=== PATIENT | male | born 1940 | race Caucasian/White ===

== ENCOUNTER 2018-04-19 14:00 | Inpatient (IN) ==
[2018-04-19] MEDS ORDERED: Sod Chloride 0.9% Inj 1,000 ML IV.SIG ONE (14:37)
--- NOTE | 2018-04-19 14:48 | ED ---
HPI General Chief Complaint: Overdose Stated Complaint: overdose Time Seen by Provider: 04/19/18 14:28 Source: patient and EMS Mode of arrival: EMS Limitations: no limitations History of Present Illness HPI Narrative: Patient is a 77-year-old male presenting to the emergency department via EMS and accompanied by law enforcement for evaluation after an attempted overdose. Patient is currently under Butt act. Patient states that he does not feel like himself. He reported that he has had financial issues due to a civil lawsuit. His moved out of their home in June, he states that they have a good relationship now and see each other frequently, he did see her last night. Patient took an unknown amount of crushed hydrocodone 5 /325mg tablets at approximately 1030 this morning. Patient crushes them for ease of administration. He also reported that he drinks 3 vodka drinks on a daily basis. He stopped taking his blood pressure medications in June around the same time his moved out. He denies any psychiatric history, or previous suicide attempt. Patient called 911 himself. He presented nauseated and vomiting. He also states he had chest pain this morning, it was midsternal with no radiation. He denied any diaphoresis or shortness of breath with that episode. He is currently pain-free. MD complaint: Reports intentional overdose Onset (ago): hour(s) Time: 10:30 Intent: suicide attempt How Overdose Was Discovered: called 911 Context: Intentional Overdose: relationship problems, financial issues, legal problems and drug/ETOH problems Associated symptoms: depression Related Data Home Medications Medication Instructions Recorded Confirmed No Known Home Medications 04/19/18 04/19/18 Allergies Allergy/AdvReac Type Severity Reaction Status Date / Time No Known Allergies Allergy Verified 04/19/18 15:19 Review of Systems ROS: all other systems reviewed are negative [facility] Medical History Medical History Depression (Acute) HTN (hypertension) (Acute) Social History Social History Substance History: Active Abuse Smoking Status: Never smoker How Often Do You Have a Drink Containing Alcohol: 4 or more times a week Recent Travel in [facility] within the Last 8 Weeks: No Recent Out of Country Travel within the Last 8 Weeks: No Substance Abuse Detail Opiates: Substance Use Type Other:: TOOK HYDROCODONE TODAY Substance Use Status: Active Immunization History Tetanus Immunization: >5 Years Course Initial Documented Vital Signs Temperature 98.2 F 04/19/18 14:27 Pulse Rate 107 H 04/19/18 14:27 Respiratory Rate 20 04/19/18 14:27 Blood Pressure 198/104 H 04/19/18 14:27 Pulse Oximetry 96 04/19/18 14:27 Last Documented Vital Signs Temperature 98.2 F 04/19/18 14:27 Pulse Rate 92 H 04/19/18 18:54 Respiratory Rate 20 04/19/18 18:54 Blood Pressure 174/96 H 04/19/18 18:54 Pulse Oximetry 95 04/19/18 18:54 Critical Care Time Critical Care Time: Yes Total Critical Care Time: 30 Attestation: Aggregate critical care time was 30 minutes. Time to perform other separately billable procedures was not included in the critical care time. My time did not include minutes spent treating any other patients simultaneously or on activities that did not directly contribute to the patient's treatment. The services I provided to this patient were to treat and/or prevent clinically significant deterioration that could result in: , decompensation, deterioration I provided critical care services requiring my management, as noted below: Chart data review, documentation time, medication orders and management, vital sign assessments/reviewing monitor data, ordering and reviewing lab tests, ordering and interpreting/reviewing x-rays and diagnostic studies, care of the patient and discussion of the patient with the admitting physicians. Medical Decision Making SANDRA Attestation SANDRA supervised visit: Yes Attestation: I, Dr. Pitmtan, have reviewed the advance practice practitioner's documentation and am in agreement, met with the patient face to face, made the diagnosis, and the medical decision making was done by me. *My assessment and Findings: Patient is a 77 year old male who presents to the ER after he tried to overdose on hydrocodone. Patient reports that he crushed a bunch of his pills around 10: 30 AM and attempt to commit suicide. Patient reports that he does want to sleep and never wake up. Patient reports that he tried to commit suicide as he is severely depressed, reports that his depression is multifactorial. Lab work was obtained, WBC 11.2, hemoglobin 15.2, hematocrit 45.4, platelets 203 Sodium 142, potassium 3.9, chloride 108, carbon dioxide 19.8, BUN 23, creatinine 1.38, LFTs are wnl Lactic acid was drawn it was 3.9, there is no obvious source of infection, IVF were ordered. He was given a dose of vancomycin as well as Zosyn for broad- spectrum coverage. He does endorse having abdominal pain, CT of the abdomen and pelvis was ordered. Patient acetaminophen level was 34.5 at 1500, will repeat this level in 4 hours. MDM Narrative Medical decision making narrative: Patient is a 77-year-old male that presented to emerge department under Butt act after an intentional attempted overdose with hydrocodone. Patient was nauseated and dry heaving on arrival. Labs and imaging ordered and pending. RN called poison control. Patient is not showing any signs of respiratory depression on arrival. His vital signs are stable. Mental health screening discussed with the patient. Psychiatric screen ordered. CBC with no acute findings, and creatinine are slightly elevated. Patient was given IV fluids. Initial lactic acid was 3.9. Initial acetaminophen level was 34.5, this was repeated 4 hours after patient presented to the emergency department and had trended down to 18.3. Lactic acid was also repeated and resulted at 3.0. Patient continued to be hypertensive, he denied having any withdrawals if he did not drink alcohol. Lopressor was ordered IV. Initially BP responded and trended down. At 1999 BP was elevated again, Clonidine 0.2mg PO x 1 dose ordered. Flagyl was ordered to cover for possible aspiration PNA that resulted on the CT of the bad/pelvis. Medical Screen Exam Complete: Yes Emergency Medical Condition: Yes Differential Diagnosis Differential Diagnosis: Metabolic abnormality versus suicidal ideations versus depression versus arrhythmia versus other Medical Records Medical records reviewed: Yes I reviewed the patient's medical records. Lab Data Result diagrams: 04/19/18 14:48 04/19/18 15:01 Lab Results 04/19/18 04/19/18 04/19/18 Range/Units 14:48 14:48 14:48 WBC 11.2 H (4.0-11.0) th/mm3 RBC 4.54 (4.50-5.90) mil/mm3 Hgb 15.2 (13.0-17.0) gm/dL Hct 45.4 (39.0-51.0) % MCV 100.1 H (80.0-100.0) fL MCH 33.5 (27.0-34.0) pg MCHC 33.5 (32.0-36.0) % RDW 13.9 (11.6-17.2) % Plt Count 203 (150-450) th/mm3 MPV 8.0 (7.0-11.0) fL Neut % (Auto) 88.7 H (16.0-70.0) % Lymph % (Auto) 6.2 L (9.0-44.0) % [place] % (Auto) 4.8 (0.0-8.0) % Eos % (Auto) 0.1 (0.0-4.0) % Baso % (Auto) 0.2 (0.0-2.0) % Neut # (Auto) 9.9 H (1.8-7.7) th/mm3 Lymph # (Auto) 0.7 L (1.0-4.8) th/mm3 [place] # (Auto) 0.5 (0.0-0.9) th/mm3 Eos # (Auto) 0.0 (0.0-0.4) th/mm3 Baso # (Auto) 0.0 (0.0-0.2) th/mm3 WBC Differential . Differential Comment Auto diff final PT 9.9 (9.8-11.6) sec INR 1.0 Ratio Puncture Site Patient Temperature O2 Saturation (90-100) % ABG pH (7.380-7.420) ABG pCO2 (38-42) mmHg ABG pO2 (61-120) mmHg ABG HCO3 (22-26) mmol/L ABG O2 Content (12.0-20.0) Vol % ABG Base Excess (-2-2) mmol/L ABG Methemoglobin (0-2) % Medardo Test Hemoglobin (12.0-16.0) G/DL Carboxyhemoglobin (0-4) % O2 Delivery Device Inspired O2 % Critical Value Sodium (136-145) meq/L Potassium (3.5-5.1) meq/L Chloride (98-107) meq/L Carbon Dioxide (21.0-32.0) meq/L Anion Gap (5-15) meq/L BUN (7-18) mg/dL Creatinine (0.60-1.30) mg/dL Estimated GFR (>89) mL/min Random Glucose (74-106) mg/dL Osmolality (275-295) mosm/kg Lactic Acid (0.4-2.0) mmol/L Calcium (8.5-10.1) mg/dL Total Bilirubin (0.2-1.0) mg/dL AST (15-37) U/L ALT (12-78) U/L Alkaline Phosphatase (45-117) U/L Troponin I (0.02-0.05) ng/mL Total Protein (6.4-8.2) g/dL Albumin (3.4-5.0) g/dL Lipase (73-393) U/L Urine Color (Yellw/Straw) Urine Clarity (Clear) Urine pH (5.0-8.5) Ur Specific [place] (1.002-1.035) Urine Protein (Neg-Trace) mg/dL Urine Glucose (UA) (Negative) mg/dL Urine Ketones (Negative) mg/dL Urine Occult Blood (Negative) Urine Nitrate (Negative) Urine Bilirubin (Negative) Urine Urobilinogen (Less than 2) mg/dL Ur Leukocyte Esterase (Negative) Urine RBC (0-3) /hpf Urine WBC (0-5) /hpf Urine Mucus (Occasional) /lpf Micro UA Comment Ur Microscopic Review Urine Culture Comments Salicylates Less than 1.7 L (2.8-20.0) mg/dL Urine Opiates Screen (Neg) Acetaminophen (10.0-30.0) mcg/mL Ur Barbiturates Screen (Neg) Ur Amphetamines Screen (Neg) U Benzodiazepines Scrn (Neg) Urine Cocaine Screen (Neg) U Cannabinoids Screen (Neg) Serum Alcohol (0-5) mg/dL 04/19/18 04/19/18 04/19/18 Range/Units 15:01 15:01 16:38 WBC (4.0-11.0) th/mm3 RBC (4.50-5.90) mil/mm3 Hgb (13.0-17.0) gm/dL Hct (39.0-51.0) % MCV (80.0-100.0) fL MCH (27.0-34.0) pg MCHC (32.0-36.0) % RDW (11.6-17.2) % Plt Count (150-450) th/mm3 MPV (7.0-11.0) fL Neut % (Auto) (16.0-70.0) % Lymph % (Auto) (9.0-44.0) % [place] % (Auto) (0.0-8.0) % Eos % (Auto) (0.0-4.0) % Baso % (Auto) (0.0-2.0) % Neut # (Auto) (1.8-7.7) th/mm3 Lymph # (Auto) (1.0-4.8) th/mm3 [place] # (Auto) (0.0-0.9) th/mm3 Eos # (Auto) (0.0-0.4) th/mm3 Baso # (Auto) (0.0-0.2) th/mm3 WBC Differential Differential Comment PT (9.8-11.6) sec INR Ratio Puncture Site Right radial Patient Temperature 98.6 O2 Saturation 95 (90-100) % ABG pH 7.38 (7.380-7.420) ABG pCO2 37 L (38-42) mmHg ABG pO2 81 (61-120) mmHg ABG HCO3 22 (22-26) mmol/L ABG O2 Content 19.4 (12.0-20.0) Vol % ABG Base Excess -2.8 L (-2-2) mmol/L ABG Methemoglobin 0.7 (0-2) % Medardo Test + Hemoglobin 14.6 (12.0-16.0) G/DL Carboxyhemoglobin 0.9 (0-4) % O2 Delivery Device Room air Inspired O2 21 % Critical Value No Sodium 142 (136-145) meq/L Potassium 3.9 (3.5-5.1) meq/L Chloride 108 H (98-107) meq/L Carbon Dioxide 19.8 L (21.0-32.0) meq/L Anion Gap 12 (5-15) meq/L BUN 23 H (7-18) mg/dL Creatinine 1.38 H (0.60-1.30) mg/dL Estimated GFR 50 L (>89) mL/min Random Glucose 134 H (74-106) mg/dL Osmolality 307 H (275-295) mosm/kg Lactic Acid 3.9 H (0.4-2.0) mmol/L Calcium 8.5 (8.5-10.1) mg/dL Total Bilirubin 0.4 (0.2-1.0) mg/dL AST 32 (15-37) U/L ALT 43 (12-78) U/L Alkaline Phosphatase 78 (45-117) U/L Troponin I Less than 0.02 L (0.02-0.05) ng/mL Total Protein 7.8 (6.4-8.2) g/dL Albumin 3.9 (3.4-5.0) g/dL Lipase 80 (73-393) U/L Urine Color (Yellw/Straw) Urine Clarity (Clear) Urine pH (5.0-8.5) Ur Specific [place] (1.002-1.035) Urine Protein (Neg-Trace) mg/dL Urine Glucose (UA) (Negative) mg/dL Urine Ketones (Negative) mg/dL Urine Occult Blood (Negative) Urine Nitrate (Negative) Urine Bilirubin (Negative) Urine Urobilinogen (Less than 2) mg/dL Ur Leukocyte Esterase (Negative) Urine RBC (0-3) /hpf Urine WBC (0-5) /hpf Urine Mucus (Occasional) /lpf Micro UA Comment Ur Microscopic Review Urine Culture Comments Salicylates (2.8-20.0) mg/dL Urine Opiates Screen (Neg) Acetaminophen 34.5 H (10.0-30.0) mcg/mL Ur Barbiturates Screen (Neg) Ur Amphetamines Screen (Neg) U Benzodiazepines Scrn (Neg) Urine Cocaine Screen (Neg) U Cannabinoids Screen (Neg) Serum Alcohol Less than 3 (0-5) mg/dL 04/19/18 04/19/18 04/19/18 Range/Units 17:39 17:39 17:57 WBC (4.0-11.0) th/mm3 RBC (4.50-5.90) mil/mm3 Hgb (13.0-17.0) gm/dL Hct (39.0-51.0) % MCV (80.0-100.0) fL MCH (27.0-34.0) pg MCHC (32.0-36.0) % RDW (11.6-17.2) % Plt Count (150-450) th/mm3 MPV (7.0-11.0) fL Neut % (Auto) (16.0-70.0) % Lymph % (Auto) (9.0-44.0) % [place] % (Auto) (0.0-8.0) % Eos % (Auto) (0.0-4.0) % Baso % (Auto) (0.0-2.0) % Neut # (Auto) (1.8-7.7) th/mm3 Lymph # (Auto) (1.0-4.8) th/mm3 [place] # (Auto) (0.0-0.9) th/mm3 Eos # (Auto) (0.0-0.4) th/mm3 Baso # (Auto) (0.0-0.2) th/mm3 WBC Differential Differential Comment PT (9.8-11.6) sec INR Ratio Puncture Site Patient Temperature O2 Saturation (90-100) % ABG pH (7.380-7.420) ABG pCO2 (38-42) mmHg ABG pO2 (61-120) mmHg ABG HCO3 (22-26) mmol/L ABG O2 Content (12.0-20.0) Vol % ABG Base Excess (-2-2) mmol/L ABG Methemoglobin (0-2) % Medardo Test Hemoglobin (12.0-16.0) G/DL Carboxyhemoglobin (0-4) % O2 Delivery Device Inspired O2 % Critical Value Sodium (136-145) meq/L Potassium (3.5-5.1) meq/L Chloride (98-107) meq/L Carbon Dioxide (21.0-32.0) meq/L Anion Gap (5-15) meq/L BUN (7-18) mg/dL Creatinine (0.60-1.30) mg/dL Estimated GFR (>89) mL/min Random Glucose (74-106) mg/dL Osmolality (275-295) mosm/kg Lactic Acid (0.4-2.0) mmol/L Calcium (8.5-10.1) mg/dL Total Bilirubin (0.2-1.0) mg/dL AST (15-37) U/L ALT (12-78) U/L Alkaline Phosphatase (45-117) U/L Troponin I (0.02-0.05) ng/mL Total Protein (6.4-8.2) g/dL Albumin (3.4-5.0) g/dL Lipase (73-393) U/L Urine Color Yellow (Yellw/Straw) Urine Clarity Clear (Clear) Urine pH 6.0 (5.0-8.5) Ur Specific [place] 1.020 (1.002-1.035) Urine Protein 30 H (Neg-Trace) mg/dL Urine Glucose (UA) Negative (Negative) mg/dL Urine Ketones Trace H (Negative) mg/dL Urine Occult Blood Negative (Negative) Urine Nitrate Negative (Negative) Urine Bilirubin Negative (Negative) Urine Urobilinogen Less than 2 (Less than 2) mg/dL Ur Leukocyte Esterase Negative (Negative) Urine RBC Less than 1 (0-3) /hpf Urine WBC Less than 1 (0-5) /hpf Urine Mucus Few H (Occasional) /lpf Micro UA Comment Culture not ind Ur Microscopic Review Not Reportable Urine Culture Comments Culture not ind Salicylates (2.8-20.0) mg/dL Urine Opiates Screen Pos H (Neg) Acetaminophen 18.3 (10.0-30.0) mcg/mL Ur Barbiturates Screen Neg (Neg) Ur Amphetamines Screen Neg (Neg) U Benzodiazepines Scrn Neg (Neg) Urine Cocaine Screen Neg (Neg) U Cannabinoids Screen Neg (Neg) Serum Alcohol (0-5) mg/dL 04/19/18 Range/Units 18:00 WBC (4.0-11.0) th/mm3 RBC (4.50-5.90) mil/mm3 Hgb (13.0-17.0) gm/dL Hct (39.0-51.0) % MCV (80.0-100.0) fL MCH (27.0-34.0) pg MCHC (32.0-36.0) % RDW (11.6-17.2) % Plt Count (150-450) th/mm3 MPV (7.0-11.0) fL Neut % (Auto) (16.0-70.0) % Lymph % (Auto) (9.0-44.0) % [place] % (Auto) (0.0-8.0) % Eos % (Auto) (0.0-4.0) % Baso % (Auto) (0.0-2.0) % Neut # (Auto) (1.8-7.7) th/mm3 Lymph # (Auto) (1.0-4.8) th/mm3 [place] # (Auto) (0.0-0.9) th/mm3 Eos # (Auto) (0.0-0.4) th/mm3 Baso # (Auto) (0.0-0.2) th/mm3 WBC Differential Differential Comment PT (9.8-11.6) sec INR Ratio Puncture Site Patient Temperature O2 Saturation (90-100) % ABG pH (7.380-7.420) ABG pCO2 (38-42) mmHg ABG pO2 (61-120) mmHg ABG HCO3 (22-26) mmol/L ABG O2 Content (12.0-20.0) Vol % ABG Base Excess (-2-2) mmol/L ABG Methemoglobin (0-2) % Medardo Test Hemoglobin (12.0-16.0) G/DL Carboxyhemoglobin (0-4) % O2 Delivery Device Inspired O2 % Critical Value Sodium (136-145) meq/L Potassium (3.5-5.1) meq/L Chloride (98-107) meq/L Carbon Dioxide (21.0-32.0) meq/L Anion Gap (5-15) meq/L BUN (7-18) mg/dL Creatinine (0.60-1.30) mg/dL Estimated GFR (>89) mL/min Random Glucose (74-106) mg/dL Osmolality (275-295) mosm/kg Lactic Acid 3.0 H (0.4-2.0) mmol/L Calcium (8.5-10.1) mg/dL Total Bilirubin (0.2-1.0) mg/dL AST (15-37) U/L ALT (12-78) U/L Alkaline Phosphatase (45-117) U/L Troponin I (0.02-0.05) ng/mL Total Protein (6.4-8.2) g/dL Albumin (3.4-5.0) g/dL Lipase (73-393) U/L Urine Color (Yellw/Straw) Urine Clarity (Clear) Urine pH (5.0-8.5) Ur Specific [place] (1.002-1.035) Urine Protein (Neg-Trace) mg/dL Urine Glucose (UA) (Negative) mg/dL Urine Ketones (Negative) mg/dL Urine Occult Blood (Negative) Urine Nitrate (Negative) Urine Bilirubin (Negative) Urine Urobilinogen (Less than 2) mg/dL Ur Leukocyte Esterase (Negative) Urine RBC (0-3) /hpf Urine WBC (0-5) /hpf Urine Mucus (Occasional) /lpf Micro UA Comment Ur Microscopic Review Urine Culture Comments Salicylates (2.8-20.0) mg/dL Urine Opiates Screen (Neg) Acetaminophen (10.0-30.0) mcg/mL Ur Barbiturates Screen (Neg) Ur Amphetamines Screen (Neg) U Benzodiazepines Scrn (Neg) Urine Cocaine Screen (Neg) U Cannabinoids Screen (Neg) Serum Alcohol (0-5) mg/dL Imaging Data Radiologist's impression: Chest X-Ray 04/19/18 14:37 CONCLUSION: 1. Mild bibasilar airspace disease, presumably atelectasis. Abdomen/Pelvis CT 04/19/18 17:30 CONCLUSION: 1. Basilar and dependent airspace consolidation in the lungs. Differential diagnosis includes mild bronchopneumonia or aspiration. 2. Diffuse moderate to severe fatty infiltration of the liver. Prior cholecystectomy. No obstruction, free fluid or free air. Discharge Plan Discharge Disposition Patient Disposition: 30 Still Patient Discharge Condition Condition: Stable Discharge Details Diagnosis: Drug overdose, PNA (pneumonia), Suicidal ideations, Acidosis, lactic Physicians Team ED Provider: Floresita Pittman ED Midlevel Provider: Patricia San Primary Care Provider: Carolina Choudhury Attending Provider: Floresita Moore Discharge Interventions Interventions: Vital Signs Last Done: 04/19/18 18:54 Status ED Status: Admitted Patient
--- NOTE | 2018-04-19 15:12 | XR ---
EXAM DATE: 04/19/2018 2:37 PM EDT AGE/SEX: 77 years / Male INDICATIONS: Chest pain. CLINICAL DATA: This is the patient's initial encounter. Patient reports that signs and symptoms have been present for 1 day and indicates a pain score of Nonresponsive. MEDICAL/SURGICAL HISTORY: Non-responsive. Non-responsive. COMPARISON: No prior exams available for comparison. FINDINGS: Mild bibasilar airspace disease. The cardiomediastinal contours are unremarkable for degree of expans ion. Osseous structures are intact. CONCLUSION: 1. Mild bibasilar airspace disease, presumably atelectasis. Electronically signed by: Uvaldo Morales MD 04/19/2018 3:10 PM EDT
[2018-04-19 15:19] LABS: Baso % (Auto) 0.2 % (0.0-2.0); Eos % (Auto) 0.1 % (0.0-4.0); Hematocrit 45.4 % (39.0-51.0); Hemoglobin 15.2 gm/dL (13.0-17.0); Lymph # (Auto) 0.7 th/mm3 (1.0-4.8); Lymph % (Auto) 6.2 % (9.0-44.0); Mean Corpuscular HGB Conc 33.5 % (32.0-36.0); Mean Corpuscular Hemoglobin 33.5 pg (27.0-34.0); Mean Corpuscular Volume 100.1 fL (80.0-100.0); Mono # (Auto) 0.5 th/mm3 (0.0-0.9); Mono % (Auto) 4.8 % (0.0-8.0); Neut # (Auto) 9.9 th/mm3 (1.8-7.7); Neut % (Auto) 88.7 % (16.0-70.0); Platelet Count 203 th/mm3 (150-450); Red Blood Count 4.54 mil/mm3 (4.50-5.90); Red Cell Distribution Width 13.9 % (11.6-17.2); White Blood Count 11.2 th/mm3 (4.0-11.0)
[2018-04-19 15:28] LABS: Prothrombin Time 9.9 sec (9.8-11.6)
[2018-04-19 15:42] LABS: Chloride 108 meq/L (98-107); Potassium 3.9 meq/L (3.5-5.1); Sodium 142 meq/L (136-145)
[2018-04-19 16:02] LABS: Albumin 3.9 g/dL (3.4-5.0); Anion Gap 12 meq/L (5-15); Aspartate Aminotransferase 32 U/L (15-37); Blood Urea Nitrogen 23 mg/dL (7-18); Calcium 8.5 mg/dL (8.5-10.1); Carbon Dioxide 19.8 meq/L (21.0-32.0); Glomerular Filtration Rate 50 mL/min (>89); Glucose,Random 134 mg/dL (74-106); Lipase 80 U/L (73-393)
[2018-04-19 16:06] LABS: Acetaminophen 34.5 mcg/mL (10.0-30.0); Alanine Aminotransferase 43 U/L (12-78); Alkaline Phosphatase 78 U/L (45-117); Total Protein 7.8 g/dL (6.4-8.2)
[2018-04-19] MEDS ORDERED: Piperacil/Tazo 3.375 GM Premix 50 ML IV.SIG ONE (16:24)
[2018-04-19 16:53] LABS: ABG Base Excess -2.8 mmol/L (-2-2); ABG PCO2 37 mmHg (38-42); ABG PO2 81 mmHg (61-120)
[2018-04-19] MEDS ORDERED: Vancomycin Inj 1 GM/200 ML PIGGYBACK IV.SIG SCH (17:00)
[2018-04-19] MEDS: Sod Chloride 0.9% Inj 1,000 ML IV.SIG SCH ×3 (17:07→18:56)
[2018-04-19] MEDS ORDERED: Metoprolol Inj 5 MG/5 ML Vial IV.PUSH ONE (18:12)
[2018-04-19 18:26] LABS: Bilirubin,Urine Negative (Negative); Clarity,Urine Clear (Clear); Color,Urine Yellow (Yellw/Straw); Glucose,Urine (UA) Negative (Negative); Leukocyte Esterase,Urine Negative (Negative); Mucus,Urine Few /lpf (Occasional); Nitrite,Urine Negative (Negative)
[2018-04-19 18:38] LABS: Amphetamine Screen,Urine Neg (Neg); Barbiturate Screen,Urine Neg (Neg); Cannabinoid Screen,Urine Neg (Neg); Cocaine Screen,Urine Neg (Neg)
[2018-04-19 18:41] LABS: Opiate Screen,Urine Pos (Neg)
[2018-04-19] MEDS ORDERED: Vancomycin Inj 1,000 MG in Sodium Chlor 0.9% Inj 250 ML IV.SIG SCH (19:00)
--- NOTE | 2018-04-19 19:06 | CT ---
EXAM DATE: 04/19/2018 5:35 PM EDT AGE/SEX: 77 years / Male INDICATIONS: Diffuse abdomen pain today. CLINICAL DATA: This is the patient's initial encounter. Patient reports that signs and symptoms have been present for 1 day and indicates a pain score of 5/10. MEDICAL/SURGICAL HISTORY: Hypertension. None. ORAL CONTRAST: No oral contrast ingested. RADIATION DOSE: 7.64 CTDI (mGy) COMPARISON: No prior exams available for comparison. TECHNIQUE: Multiple contiguous axial images were obtained through the abdomen and pelvis following b olus infusion of 90 ml Omnipaque 350 (iohexol) nonionic water-soluble contrast as a single exam dos e. No oral contrast ingested. Using automated exposure control and adjustment of the mA and/or kV ac cording to patient size, radiation dose was kept as low as reasonably achievable to obtain optimal di agnostic quality images. DICOM format image data is available electronically for review and comparis on. FINDINGS: There is dependent airspace disease at the lung bases. Also mild lingular consolidation. Diffuse fatty infiltration of the liver. Prior cholecystectomy. Spleen, adrenals, kidneys and pancrea s unremarkable. Previous cholecystectomy. No bowel obstruction. No adenopathy. No acute bony abnormalities. Moderate to severe degenerative miguel nge in the lumbar spine. CONCLUSION: 1. Basilar and dependent airspace consolidation in the lungs. Differential diagnosis includes mild b ronchopneumonia or aspiration. 2. Diffuse moderate to severe fatty infiltration of the liver. Prior cholecystectomy. No obstruction , free fluid or free air. Electronically signed by: Yogi Elizalde MD 04/19/2018 7:05 PM EDT
[2018-04-19] MEDS ORDERED: Bisacodyl 10 MG Supp RECTAL PRN (20:56)
[2018-04-19] MEDS ORDERED: Heparin - SQ 10,000 UNITS/ML Vial SQ SCH (21:00)
[2018-04-19] MEDS ORDERED: Vancomycin Consult Pharmacy OTHER PRN (21:01)
[2018-04-19] MEDS ORDERED: Naloxone Inj 0.4 MG/ML Vial IV.PUSH PRN (21:09)
--- NOTE | 2018-04-19 21:14 | P.HP ---
History of Present Illness Service: [facility] Primary Care Physician: Carolina Choudhury DO History of Present Illness: 77-year-old male with a past medical history significant for hypertension, hyperlipidemia, peptic ulcer disease and coronary artery disease status post stent placement presents to the emergency department for the evaluation of an intentional overdose. The patient reports he took approximately 20 hydrocodone based medications (he thinks it may have been combined with acetaminophen but is not sure), crush them up and swallowed them with milk. He states he did this because he wanted to . He states he has multiple financial problems and is currently being sued. He also reports that for the past 8 months he has not been taking his prescription medications because he feels he does not need to. The patient reports that he called EMS himself at approximately 230 this afternoon (ingestion was at 10 AM) because he regretted his decision. He does not have a history of depression and has not attempted suicide in the past. He denies chest pain or shortness of breath. No abdominal pain. No nausea/ vomiting/diarrhea. No fever/chills. No lateralizing signs/symptoms. Inpatient Certification: I certify that the inpatient services were ordered in accordance with Medicare regulations governing the order. 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 - Medical History Medical History: Medical History (Last Updated 04/19/18 @ 21:06 by Floresita Moore MD) Coronary artery disease HTN (hypertension) Hyperlipidemia Peptic ulcer disease - Surgical History Surgical History: Surgical History (Last Updated 04/19/18 @ 21:06 by Floresita Moore MD) History of back surgery Status post coronary artery stent placement - Family History Family History: Family History (Last Updated 04/19/18 @ 21:07 by Floresita Moore MD) Other Coronary artery disease - Tobacco History Smoking Status: Never smoker - Alcohol History How Often Do You Have a Drink Containing Alcohol: 4 or more times a week - Substance Use History 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 - Travel History Recent Travel in the [place] Within the Last 8 Weeks: No Recent Travel Out of the Country Within the Last 8 Weeks: No - Immunization History Tetanus Immunization: >5 Years Medications and Allergies Active Medications: Active Medications Al Hydroxide/Mg Hydroxide (Milk Of Magnesia Liq) 30 ml PO Q12H PRN PRN Reason: Mild Constipation Bisacodyl (Dulcolax Supp) 10 mg RECTAL DAILY PRN PRN Reason: SEVERE CONSITIPATION Heparin Sodium (Porcine) (Heparin Inj) 5,000 units SQ Q8H [place] Sodium Chloride (Ns Inj) 1,000 mls @ 0 mls/hr IV.SIG BOLUS [place] Stop: 04/21/18 16:31 Last Infusion: 04/19/18 20:23 Dose: Infused Vancomycin HCl 1,000 mg/ (Sodium Chloride) 250 mls @ 200 mls/hr IV.SIG [employer] [place] Metronidazole/Sodium Chloride (Flagyl 500 Mg Inj) 100 mls @ 100 mls/hr IV.SIG Q8H [place] Sodium Chloride (Ns Inj) 1,000 mls @ 100 mls/hr IV.CONT .Q10H [place] Piperacillin/Tazobactam/Dextrose (Zosyn 4.5 Gm Premix) 4.5 gm in 100 mls @ 200 mls/hr IV.SIG Q6H [place] Lactulose (Lactulose Liq) 30 ml PO DAILY PRN PRN Reason: SEVERE CONSITIPATION Ondansetron HCl (Zofran Inj) 4 mg IV.PUSH Q6H PRN PRN Reason: NAUSEA OR VOMITING Pharmacy Profile Note (Vancomycin Consult Pharmacy) 1 each OTHER UNSCH PRN PRN Reason: Pharmacy to dose Senna/Docusate Sodium (Porsha-Colace) 1 tab PO BID [place] Sennosides (Senokot) 17.2 mg PO Q12H PRN PRN Reason: Moderate Constipation Sodium Chloride (Ns Flush) 2 ml IV.FLUSH PRN PRN PRN Reason: FLUSH AFTER USING IV ACCESS Allergies Allergy/AdvReac Type Severity Reaction Status Date / Time No Known Allergies Allergy Verified 04/19/18 15:19 Home Medications Medication Instructions Recorded Confirmed Type No Known Home Medications 04/19/18 04/19/18 History Exam Vital signs: Vital Signs 04/19/18 14:27 04/19/18 15:16 04/19/18 17:08 Temperature 98.2 F Pulse Rate 107 H 102 H Respiratory Rate 20 19 Blood Pressure 198/104 H 199/104 H Pulse Oximetry 96 94 L 97 04/19/18 18:54 Temperature Pulse Rate 92 H Respiratory Rate 20 Blood Pressure 174/96 H Pulse Oximetry 95 Intake & Output 04/19/18 04/19/18 04/20/18 06:59 18:59 06:59 Intake Total 3050 / 3050 1000 / 1000 Balance 3050 / 3050 1000 / 1000 Weight 83.915 kg Intake: IV 3050 / 3050 1000 / 1000 Zosyn 3.375 GM Premix 50 ML @ 50 / 50 100 mls/hr IV.SIG ONCE ONE Rx#: [id number] NS Inj 1,000 ML @ Wide Open IV. 3000 / 3000 1000 / 1000 SIG BOLUS [place] Rx#:[id number] Narrative: Gen.: No acute distress Head: Normocephalic. Atraumatic. EENT: Pupils equal round and reactive to light. Nose without drainage. Airway intact. Throat without injection. Cardiovascular: Regular rate and rhythm. No murmurs, rubs or gallops. Respiratory: Lungs clear to auscultation bilaterally. No wheezes or rhonchi. Abdomen: Soft, nontender, nondistended. No peritoneal signs. Musculoskeletal: No gross deformities. No edema. Skin: No obvious rashes or erythema. Neuro: Sensory and motor grossly intact. Cranial nerves II through XII grossly intact. Psych: Depressed mood Results - Labs CBC & Chem 7: 04/19/18 14:48 04/19/18 15:01 Labs: Laboratory Results - last 24 hr 04/19/18 04/19/18 04/19/18 14:48 14:48 14:48 WBC 11.2 H RBC 4.54 Hgb 15.2 Hct 45.4 MCV 100.1 H MCH 33.5 MCHC 33.5 RDW 13.9 Plt Count 203 MPV 8.0 Neut % (Auto) 88.7 H Lymph % (Auto) 6.2 L [place] % (Auto) 4.8 Eos % (Auto) 0.1 Baso % (Auto) 0.2 Neut # (Auto) 9.9 H Lymph # (Auto) 0.7 L [place] # (Auto) 0.5 Eos # (Auto) 0.0 Baso # (Auto) 0.0 WBC Differential . Differential Comment Auto diff final PT 9.9 INR 1.0 Puncture Site Patient Temperature O2 Saturation ABG pH ABG pCO2 ABG pO2 ABG HCO3 ABG O2 Content ABG Base Excess ABG Methemoglobin Medardo Test Hemoglobin Carboxyhemoglobin O2 Delivery Device Inspired O2 Critical Value Sodium Potassium Chloride Carbon Dioxide Anion Gap BUN Creatinine Estimated GFR Random Glucose Osmolality Lactic Acid Calcium Total Bilirubin AST ALT Alkaline Phosphatase Troponin I Total Protein Albumin Lipase Urine Color Urine Clarity Urine pH Ur Specific [place] Urine Protein Urine Glucose (UA) Urine Ketones Urine Occult Blood Urine Nitrate Urine Bilirubin Urine Urobilinogen Ur Leukocyte Esterase Urine RBC Urine WBC Urine Mucus Micro UA Comment Ur Microscopic Review Urine Culture Comments Salicylates Less than 1.7 L Urine Opiates Screen Acetaminophen Ur Barbiturates Screen Ur Amphetamines Screen U Benzodiazepines Scrn Urine Cocaine Screen U Cannabinoids Screen Serum Alcohol 04/19/18 04/19/18 04/19/18 15:01 15:01 16:38 WBC RBC Hgb Hct MCV MCH MCHC RDW Plt Count MPV Neut % (Auto) Lymph % (Auto) [place] % (Auto) Eos % (Auto) Baso % (Auto) Neut # (Auto) Lymph # (Auto) [place] # (Auto) Eos # (Auto) Baso # (Auto) WBC Differential Differential Comment PT INR Puncture Site Right radial Patient Temperature 98.6 O2 Saturation 95 ABG pH 7.38 ABG pCO2 37 L ABG pO2 81 ABG HCO3 22 ABG O2 Content 19.4 ABG Base Excess -2.8 L ABG Methemoglobin 0.7 Medardo Test + Hemoglobin 14.6 Carboxyhemoglobin 0.9 O2 Delivery Device Room air Inspired O2 21 Critical Value No Sodium 142 Potassium 3.9 Chloride 108 H Carbon Dioxide 19.8 L Anion Gap 12 BUN 23 H Creatinine 1.38 H Estimated GFR 50 L Random Glucose 134 H Osmolality 307 H Lactic Acid 3.9 H Calcium 8.5 Total Bilirubin 0.4 AST 32 ALT 43 Alkaline Phosphatase 78 Troponin I Less than 0.02 L Total Protein 7.8 Albumin 3.9 Lipase 80 Urine Color Urine Clarity Urine pH Ur Specific [place] Urine Protein Urine Glucose (UA) Urine Ketones Urine Occult Blood Urine Nitrate Urine Bilirubin Urine Urobilinogen Ur Leukocyte Esterase Urine RBC Urine WBC Urine Mucus Micro UA Comment Ur Microscopic Review Urine Culture Comments Salicylates Urine Opiates Screen Acetaminophen 34.5 H Ur Barbiturates Screen Ur Amphetamines Screen U Benzodiazepines Scrn Urine Cocaine Screen U Cannabinoids Screen Serum Alcohol Less than 3 04/19/18 04/19/18 04/19/18 17:39 17:39 17:57 WBC RBC Hgb Hct MCV MCH MCHC RDW Plt Count MPV Neut % (Auto) Lymph % (Auto) [place] % (Auto) Eos % (Auto) Baso % (Auto) Neut # (Auto) Lymph # (Auto) [place] # (Auto) Eos # (Auto) Baso # (Auto) WBC Differential Differential Comment PT INR Puncture Site Patient Temperature O2 Saturation ABG pH ABG pCO2 ABG pO2 ABG HCO3 ABG O2 Content ABG Base Excess ABG Methemoglobin Medardo Test Hemoglobin Carboxyhemoglobin O2 Delivery Device Inspired O2 Critical Value Sodium Potassium Chloride Carbon Dioxide Anion Gap BUN Creatinine Estimated GFR Random Glucose Osmolality Lactic Acid Calcium Total Bilirubin AST ALT Alkaline Phosphatase Troponin I Total Protein Albumin Lipase Urine Color Yellow Urine Clarity Clear Urine pH 6.0 Ur Specific [place] 1.020 Urine Protein 30 H Urine Glucose (UA) Negative Urine Ketones Trace H Urine Occult Blood Negative Urine Nitrate Negative Urine Bilirubin Negative Urine Urobilinogen Less than 2 Ur Leukocyte Esterase Negative Urine RBC Less than 1 Urine WBC Less than 1 Urine Mucus Few H Micro UA Comment Culture not ind Ur Microscopic Review Not Reportable Urine Culture Comments Culture not ind Salicylates Urine Opiates Screen Pos H Acetaminophen 18.3 Ur Barbiturates Screen Neg Ur Amphetamines Screen Neg U Benzodiazepines Scrn Neg Urine Cocaine Screen Neg U Cannabinoids Screen Neg Serum Alcohol 04/19/18 04/19/18 18:00 20:20 WBC RBC Hgb Hct MCV MCH MCHC RDW Plt Count MPV Neut % (Auto) Lymph % (Auto) [place] % (Auto) Eos % (Auto) Baso % (Auto) Neut # (Auto) Lymph # (Auto) [place] # (Auto) Eos # (Auto) Baso # (Auto) WBC Differential Differential Comment PT INR Puncture Site Patient Temperature O2 Saturation ABG pH ABG pCO2 ABG pO2 ABG HCO3 ABG O2 Content ABG Base Excess ABG Methemoglobin Medardo Test Hemoglobin Carboxyhemoglobin O2 Delivery Device Inspired O2 Critical Value Sodium Potassium Chloride Carbon Dioxide Anion Gap BUN Creatinine Estimated GFR Random Glucose Osmolality Lactic Acid 3.0 H 3.8 H Calcium Total Bilirubin AST ALT Alkaline Phosphatase Troponin I Total Protein Albumin Lipase Urine Color Urine Clarity Urine pH Ur Specific [place] Urine Protein Urine Glucose (UA) Urine Ketones Urine Occult Blood Urine Nitrate Urine Bilirubin Urine Urobilinogen Ur Leukocyte Esterase Urine RBC Urine WBC Urine Mucus Micro UA Comment Ur Microscopic Review Urine Culture Comments Salicylates Urine Opiates Screen Acetaminophen Ur Barbiturates Screen Ur Amphetamines Screen U Benzodiazepines Scrn Urine Cocaine Screen U Cannabinoids Screen Serum Alcohol - Imaging Impressions Chest X-Ray 04/19/18 14:37 CONCLUSION: 1. Mild bibasilar airspace disease, presumably atelectasis. Abdomen/Pelvis CT 04/19/18 17:30 CONCLUSION: 1. Basilar and dependent airspace consolidation in the lungs. Differential diagnosis includes mild bronchopneumonia or aspiration. 2. Diffuse moderate to severe fatty infiltration of the liver. Prior cholecystectomy. No obstruction, free fluid or free air. Caprini VTE Risk Assessment Caprini VTE Risk Assessment: Moderate/High Risk (score >= 2) Caprini Risk Assessment Model: Point Value = 1 Point Value = 2 Point Value = 3 Point Value = 5 Age 41-60 Minor surgery BMI > 25 kg/m2 Swollen legs Varicose veins or History of unexplained or recurrent spontaneous Oral contraceptives or hormone replacement Sepsis (< 1 month) Serious lung disease, including pneumonia (< 1 month) Abnormal pulmonary function Acute myocardial infarction Congestive heart failure (< 1 month) History of inflammatory bowel disease Medical patient at bed rest Age 61-74 Arthroscopic surgery Major open surgery (> 45 min) Laparoscopic surgery (> 45 min) Malignancy Confined to bed (> 72 hours) Immobilizing plaster cast Central venous access Age >= 75 History of VTE Family history of VTE Factor V Leiden Prothrombin [id number] Lupus anticoagulant Anticardiolipin antibodies Elevated serum homocysteine Heparin-induced thrombocytopenia Other congenital or acquired thrombophilia Stroke (< 1 month) Elective arthroplasty Hip, pelvis, or leg fracture Acute spinal cord injury (< 1 month) Prophylaxis Regimen: Total Risk Factor Score Risk Level Prophylaxis Regimen 0-1 Low Early ambulation 2 Moderate Order ONE of the following: *Sequential Compression Device (SCD) *Heparin 5000 units SQ BID 3-4 Higher Order ONE of the following medications: *Heparin 5000 units SQ TID *Enoxaparin/Lovenox 40 mg SQ daily (WT < 150 kg, CrCl > 30 mL/min) *Enoxaparin/Lovenox 30 mg SQ daily (WT < 150 kg, CrCl > 10-29 mL/min) *Enoxaparin/Lovenox 30 mg SQ BID (WT < 150 kg, CrCl > 30 mL/min) AND/OR *Sequential Compression Device (SCD) 5 or more Highest Order ONE of the following medications: *Heparin 5000 units SQ TID (Preferred with Epidurals) *Enoxaparin/Lovenox 40 mg SQ daily (WT < 150 kg, CrCl > 30 mL/min) *Enoxaparin/Lovenox 30 mg SQ daily (WT < 150 kg, CrCl > 10-29 mL/min) *Enoxaparin/Lovenox 30 mg SQ BID (WT < 150 kg, CrCl > 30 mL/min) AND *Sequential Compression Device (SCD) Assessment and Plan - Plan Assessment/plan: 1. Intentional overdose/suicidal ideation Patient under Butt act Psychiatry consulted, appreciate recommendations Poison control contacted regarding acetaminophen and hydrocodone overdose Repeat acetaminophen level trending down No signs/symptoms of respiratory depression Narcan as needed 2. Possible aspiration pneumonia/leukocytosis/elevated lactic acid CT of the abdomen/pelvis significant for mild bronchopneumonia versus aspiration Vancomycin/Zosyn/Flagyl Repeat lactic acid pending IV fluid hydration 3. Acute kidney injury Mean 1.38, no baseline for comparison IV fluid hydration Monitor renal function 4. Hypertension Clonidine as needed 5. Coronary artery disease Aspirin 6. Peptic ulcer disease/hyperlipidemia Resume home medications on discharge FEN Heart healthy diet Electrolytes: Monitor and replete as needed Heparin NS at 100 cc/hour
[2018-04-19 23:32] LABS: Total Protein 6.4 g/dL (6.4-8.2)
[2018-04-19] MEDS: Sod Chloride 0.9% Inj 1,000 ML IV.CONT SCH (23:38)
[2018-04-19] MEDS: Senna/Docusate Sodium 8.6/50 MG Tablet PO SCH (23:39)
[2018-04-19] MEDS: Heparin - SQ 10,000 UNITS/ML Vial SQ SCH (23:39)
[2018-04-19] MEDS: Vancomycin Inj 1,250 MG in Sodium Chlor 0.9% Inj 250 ML IV.SIG SCH (23:39)
[2018-04-20 03:45] LABS: Baso # (Auto) 0.1 th/mm3 (0.0-0.2); Baso % (Auto) 1.5 % (0.0-2.0); Eos % (Auto) 0.3 % (0.0-4.0); Hematocrit 38.7 % (39.0-51.0); Hemoglobin 13.4 gm/dL (13.0-17.0); Lymph # (Auto) 0.9 th/mm3 (1.0-4.8); Lymph % (Auto) 13.3 % (9.0-44.0); Mean Corpuscular HGB Conc 34.5 % (32.0-36.0); Mean Corpuscular Hemoglobin 34.3 pg (27.0-34.0); Mean Corpuscular Volume 99.3 fL (80.0-100.0); Mean Platelet Volume 7.7 fL (7.0-11.0); Mono # (Auto) 0.6 th/mm3 (0.0-0.9); Mono % (Auto) 8.6 % (0.0-8.0); Neut # (Auto) 5.4 th/mm3 (1.8-7.7); Neut % (Auto) 76.3 % (16.0-70.0); Platelet Count 186 th/mm3 (150-450); Red Cell Distribution Width 13.8 % (11.6-17.2); White Blood Count 7.1 th/mm3 (4.0-11.0)
[2018-04-20 04:31] LABS: Calcium 6.7 mg/dL (8.5-10.1); Carbon Dioxide 24.6 meq/L (21.0-32.0); Potassium 3.8 meq/L (3.5-5.1)
[2018-04-20 04:43] LABS: Total Protein 6.1 g/dL (6.4-8.2)
[2018-04-20] MEDS ORDERED: Calcium Gluconate Inj 2 GM in Dextrose 5% in Water Inj 100 ML IV.SIG ONE ×2 (05:25)
[2018-04-20] MEDS: Piperacil/Tazo 4.5 GM Premix 4.5 GM/100 ML BAG IV.SIG SCH ×5 (05:31→23:35)
[2018-04-20] MEDS: Heparin - SQ 10,000 UNITS/ML Vial SQ SCH ×3 (05:35→23:34)
[2018-04-20] MEDS: Senna/Docusate Sodium 8.6/50 MG Tablet PO SCH ×2 (09:41→21:22)
[2018-04-20] MEDS: Sod Chloride 0.9% Inj 1,000 ML IV.CONT SCH (09:42)
[2018-04-20 12:18] LABS: Calcium 7.4 mg/dL (8.5-10.1)
[2018-04-20] MEDS ORDERED: Sodium Chloride 0.9% 2 ML Flush PRN IV.FLUSH (13:03)
--- NOTE | 2018-04-20 14:52 | P.CONPSY ---
Provisional Diagnosis Admission Date: April 19, 2018 21:14 [place] I.: Major depressive disorder, single episode, without psychosis, alcohol use disorder History of Present Illness Service: Medicine Primary Care Provider: Carolina Choudhury DO History of Present Illness: The patient is a 77-year-old man, domiciled with his in [place] , father of 3 kids, retired, with previous psychiatric history alcohol use disorder, no previous psychiatric hospitalizations, no previous suicide attempts , with a past medical history significant for hypertension, hyperlipidemia, peptic ulcer disease and coronary artery disease status post stent placement presents to the emergency department for the evaluation of an intentional overdose. The patient reports he took approximately 20 hydrocodone based medications (he thinks it may have been combined with acetaminophen but is not sure), crush them up and swallowed them with milk. He states he did this because he wanted to . He states he has multiple financial problems and is currently being sued. He also reports that for the past 8 months he has not been taking his prescription medications because he feels he does not need to. Admitted to medicine due to possible aspiration pneumonia/leukocytosis/elevated lactic acid. CT of the abdomen/pelvis significant for mild bronchopneumonia versus aspiration. Vancomycin/Zosyn/Flagyl. he also have a acute kidney injury, Cre 1.38. Consulted to psychiatry to address overdose and suicidal ideation. Chart was reviewed. On my psychiatric evaluation the patient is calm, cooperative, pleasant. The patient reports that in the last month his life has been going down the heel. He says that he is facing a legal suit due to mismanagement of finances of a business in the past as well as also facing having to go in bankruptcy. He says that this is an embarrassment for a person who worked for [employer] for over 30 years. He also reports that given the situation he has been increasingly using alcohol in the last months. For the last week he has been feeling increasingly hopeless, helpless, worthless , extremely pessimistic, no enjoying life, thinking that his life is not worth living to the point that he tried to commit suicide. He says that he does not really want to , that he would like to do better, but he feels very depressed. 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, highest level of education is college Review of Systems All other systems reviewed negative except as stated in HPI Psychiatric: Reports depression, Reports hopelessness, Reports thoughts of hurting/killing yourself PMFSH - History History Provided By: Patient - Medical History Medical History: Medical History (Last Updated 04/19/18 @ 21:06 by Floresita Moore MD) Coronary artery disease HTN (hypertension) Hyperlipidemia Peptic ulcer disease - Surgical History Surgical History: Surgical History (Last Updated 04/19/18 @ 21:06 by Floresita Moore MD) History of back surgery Status post coronary artery stent placement - Family History Family History: Family History (Last Updated 04/19/18 @ 21:07 by Floresita Moore MD) Other Coronary artery disease - Tobacco History Second Hand Smoke Exposure: Yes Tobacco Use In Past 30 Days: No Smoking Status: Former smoker Tobacco Type: Cigarettes - Alcohol History How Often Do You Have a Drink Containing Alcohol: 4 or more times a week - Substance Use History Substance History: No History of Abuse - Substance Use Type Opiates Type: TOOK HYDROCODONE TODAY Status: Active - Travel History Recent Travel in the [place] Within the Last 8 Weeks: No Recent Travel Out of the Country Within the Last 8 Weeks: No - Immunization History Tetanus Immunization: >5 Years Medications and Allergies Active Medications: Active Medications Al Hydroxide/Mg Hydroxide (Milk Of Magnesia Liq) 30 ml PO Q12H PRN PRN Reason: Mild Constipation Aspirin (Aspirin Chew) 81 mg PO DAILY [facility] Last Admin: 04/20/18 09:41 Dose: 81 mg Bisacodyl (Dulcolax Supp) 10 mg RECTAL DAILY PRN PRN Reason: SEVERE CONSITIPATION Clonidine HCl (Catapres) 0.1 mg PO Q6H PRN PRN Reason: SBP>160, DBP>90 Last Admin: 04/20/18 09:41 Dose: 0.1 mg Heparin Sodium (Porcine) (Heparin Inj) 5,000 units SQ Q8H [facility] Last Admin: 04/20/18 13:06 Dose: 5,000 units Metronidazole/Sodium Chloride (Flagyl 500 Mg Inj) 100 mls @ 100 mls/hr IV.SIG Q8H [facility] Last Infusion: 04/20/18 14:23 Dose: Infused Sodium Chloride (Ns Inj) 1,000 mls @ 100 mls/hr IV.CONT .Q10H [facility] Last Admin: 04/20/18 09:42 Dose: 100 mls/hr Piperacillin/Tazobactam/Dextrose (Zosyn 4.5 Gm Premix) 4.5 gm in 100 mls @ 200 mls/hr IV.SIG Q6H [facility] Last Admin: 04/20/18 12:33 Dose: 200 mls/hr Vancomycin HCl 1,250 mg/ (Sodium Chloride) 262.5 mls @ 250 mls/hr IV.SIG Q18H [facility] Last Infusion: 04/20/18 07:20 Dose: Infused Lactulose (Lactulose Liq) 30 ml PO DAILY PRN PRN Reason: SEVERE CONSITIPATION Miscellaneous Information ([facility] Ordered Lab Info) 0 each OTHER ONCE ONE Stop: 04/22/18 03:46 Naloxone HCl (Narcan Inj) 0.4 mg IV.PUSH Q2M PRN PRN Reason: resp depression Ondansetron HCl (Zofran Inj) 4 mg IV.PUSH Q6H PRN PRN Reason: NAUSEA OR VOMITING Last Admin: 04/20/18 05:46 Dose: 4 mg Pharmacy Profile Note (Vancomycin Consult Pharmacy) 1 each OTHER UNSCH PRN PRN Reason: Pharmacy to dose Senna/Docusate Sodium (Porsha-Colace) 1 tab PO BID [facility] Last Admin: 04/20/18 09:41 Dose: 1 tab Sennosides (Senokot) 17.2 mg PO Q12H PRN PRN Reason: Moderate Constipation Sodium Chloride (Ns Flush) 2 ml IV.FLUSH BID [facility] Sodium Chloride (Ns Flush) 2 ml IV.FLUSH PRN PRN PRN Reason: FLUSH AFTER USING IV ACCESS Allergies Allergy/AdvReac Type Severity Reaction Status Date / Time No Known Allergies Allergy Verified 04/19/18 15:19 Home Medications Medication Instructions Recorded Confirmed Type No Known Home Medications 04/19/18 04/19/18 History Exam Vital signs: Vital Signs 04/19/18 15:16 04/19/18 17:08 04/19/18 18:54 Temperature Pulse Rate 102 H 92 H Respiratory Rate 19 20 Blood Pressure 199/104 H 174/96 H Pulse Oximetry 94 L 97 95 04/19/18 23:24 04/20/18 00:00 04/20/18 04:00 Temperature 98 F 97.9 F Pulse Rate 99 H 84 Respiratory Rate 18 19 Blood Pressure 167/95 H 162/92 H Pulse Oximetry 96 96 96 04/20/18 04:06 04/20/18 08:00 04/20/18 12:00 Temperature 97.8 F 97.7 F Pulse Rate 74 71 77 Respiratory Rate 17 16 Blood Pressure 170/87 H 165/95 H Pulse Oximetry 95 94 L Intake & Output 04/19/18 04/20/18 04/20/18 18:59 06:59 18:59 Intake Total 3050 / 3050 1200 / 1200 1582.5 / 1582.5 Balance 3050 / 3050 1200 / 1200 1582.5 / 1582.5 Weight 83.915 kg 83.91 kg Intake: IV 3050 / 3050 1200 / 1200 1582.5 / 1582.5 NS Inj 1,000 ML @ 100 mls/hr IV 1000 / 1000 .CONT .Q10H [facility] Rx#:[id number] Calcium Gluconate Inj 2 GM In 120 / 120 D5W Inj 100 ML @ 120 mls/hr IV. SIG ONCE ONE Rx#:[id number] Zosyn 3.375 GM Premix 50 ML @ 50 / 50 100 mls/hr IV.SIG ONCE ONE Rx#: [id number] Zosyn 4.5 GM Premix 4.5 gm In 100 / 100 100 ml @ 200 mls/hr IV.SIG Q6H [facility] Rx#:[id number] NS Inj 1,000 ML @ Wide Open IV. 3000 / 3000 1000 / 1000 SIG BOLUS [facility] Rx#:[id number] Vancomycin Inj 1,250 MG In NS 262.5 / 262.5 Inj 250 ML @ 250 mls/hr IV.SIG Q18H [facility] Rx#:[id number] Flagyl 500 MG Inj 100 ML @ 100 100 / 100 200 / 200 mls/hr IV.SIG Q8H [facility] Rx#: [id number] Other: # Voids 3 Date of Last Bowel Movement 04/19/18 Narrative: No tremors, no EPS, no psychomotor agitation or retardation, no withdrawal symptoms at the moment, no catatonia - Constitutional no acute distress - Routine HEENT Exam Head: Present: normocephalic, atraumatic Eye: Present: EOMI, PERRL Mental Status Examination Appearance: Appropriate Consciousness: Alert Orientation: x4 Motor Activity: Normal gait Speech: Unremarkable Language: Adequate Fund of Knowledge: Adequate Attention and Concentration: Adequate Memory: Unremarkable Mood: Sad Affect: Sad Thought Process & Associations: Intact Thought Content: Appropriate Hallucination Type: None Delusion Type: None Suicidal Ideation: Yes Suicidal Plan: No Suicidal Intention: No Homicidal Ideation: No Homicidal Plan: No Homicidal Intention: No Insight: Poor Judgment: Poor Assessment and Plan - Assessment (1) Major depressive disorder Code(s): F32.9 - Major depressive disorder, single episode, unspecified Status : Acute - Plan Plan: On my psychiatric evaluation today I find a patient that has tried to commit suicide by overdosing with opiates in the context of depression related with financial stressors and increased alcohol use. The patient reports that in the last 2-3 weeks he has been experiencing a significant sense of hopelessness, helplessness, worthlessness, lack of enjoyment, anxiety, insomnia, poor appetite and energy, and suicidal thoughts to the point that he overdose to . This is a patient with no previous psychiatric history, no previous suicide attempts, no prepsychotic hospitalizations, but at this moment given the lethality of recent suicide attempt, depressive symptoms and continue acute stressor, the patient has an elevated risk of danger to self and he needs psychiatric hospitalization for stabilization. I will start Effexor 37.5 mg daily for depression, clonazepam 1 mg at bedtime to help with anxiety and insomnia, and I will start the patient in CIWA. Extensive support, motivational psych education provided. The patient will be transferred to psychiatry once medically stable. Justification for Continued Inpatient Stay: Transferred to psychiatry. (1) Major depressive disorder Qualifiers: Major depression recurrence: single episode Major depression episode severity : severe Psychotic features: without psychotic features
--- NOTE | 2018-04-20 16:34 | P.PNIM ---
Subjective Interval history: Patient has good insight, understands that overdosing was a mistake. He understands that he is on MedSurg to monitor his hypokalemia and hypertension but that he will need to undergo psychiatric evaluation prior to discharge. Physical Exam Vital signs: Vital Signs 04/19/18 17:08 04/19/18 18:54 04/19/18 23:24 Temperature 98 F Pulse Rate 102 H 92 H 99 H Respiratory Rate 19 20 18 Blood Pressure 199/104 H 174/96 H 167/95 H Pulse Oximetry 97 95 96 04/20/18 00:00 04/20/18 04:00 04/20/18 04:06 Temperature 97.9 F Pulse Rate 84 74 Respiratory Rate 19 Blood Pressure 162/92 H Pulse Oximetry 96 96 04/20/18 08:00 04/20/18 12:00 Temperature 97.8 F 97.7 F Pulse Rate 71 77 Respiratory Rate 17 16 Blood Pressure 170/87 H 165/95 H Pulse Oximetry 95 94 L Intake & Output 04/19/18 04/20/18 04/20/18 18:59 06:59 18:59 Intake Total 3050 / 3050 1200 / 1200 1582.5 / 1582.5 Balance 3050 / 3050 1200 / 1200 1582.5 / 1582.5 Weight 83.915 kg 83.91 kg Intake: IV 3050 / 3050 1200 / 1200 1582.5 / 1582.5 NS Inj 1,000 ML @ 100 mls/hr IV 1000 / 1000 .CONT .Q10H [facility] Rx#:[id number] Calcium Gluconate Inj 2 GM In 120 / 120 D5W Inj 100 ML @ 120 mls/hr IV. SIG ONCE ONE Rx#:[id number] Zosyn 3.375 GM Premix 50 ML @ 50 / 50 100 mls/hr IV.SIG ONCE ONE Rx#: [id number] Zosyn 4.5 GM Premix 4.5 gm In 100 / 100 100 ml @ 200 mls/hr IV.SIG Q6H [facility] Rx#:[id number] NS Inj 1,000 ML @ Wide Open IV. 3000 / 3000 1000 / 1000 SIG BOLUS [facility] Rx#:[id number] Vancomycin Inj 1,250 MG In NS 262.5 / 262.5 Inj 250 ML @ 250 mls/hr IV.SIG Q18H [facility] Rx#:[id number] Flagyl 500 MG Inj 100 ML @ 100 100 / 100 200 / 200 mls/hr IV.SIG Q8H [facility] Rx#: [id number] Other: # Voids 3 Date of Last Bowel Movement 04/19/18 Narrative: GENERAL: AAOx3, no acute distress SKIN: Warm and dry. No rashes HEAD: Atruamtic, normocephalic. EYES: No scleral icterus. No injection or drainage. ENT: Moist mucous membranes, patent nares, no erythema of oropharynx. NECK: Supple, trachea midline. No JVD or lymphadenopathy. Normal thyroid. CARDIOVASCULAR: Regular rate and rhythm. No murmurs, gallops, or rubs. RESPIRATORY: Breath sounds clear equal bilaterally. No crackles or wheezes. No accessory muscle use. GASTROINTESTINAL: Abdomen soft, non-tender, nondistended, normal active bowel sounds MUSCULOSKELETAL: No cyanosis, or edema. NEURO: CN II-XII grossly intact, no focal deficits, no slurring of speech Results - Labs CBC & Chem 7: 04/20/18 03:30 04/20/18 03:30 Laboratory Results - last 24 hr 04/19/18 04/19/18 04/19/18 16:38 17:39 17:39 WBC RBC Hgb Hct MCV MCH MCHC RDW Plt Count MPV Neut % (Auto) Lymph % (Auto) [place] % (Auto) Eos % (Auto) Baso % (Auto) Neut # (Auto) Lymph # (Auto) [place] # (Auto) Eos # (Auto) Baso # (Auto) WBC Differential Differential Comment Puncture Site Right radial Patient Temperature 98.6 O2 Saturation 95 ABG pH 7.38 ABG pCO2 37 L ABG pO2 81 ABG HCO3 22 ABG O2 Content 19.4 ABG Base Excess -2.8 L ABG Methemoglobin 0.7 Medardo Test + Hemoglobin 14.6 Carboxyhemoglobin 0.9 O2 Delivery Device Room air Inspired O2 21 Critical Value No Sodium Potassium Chloride Carbon Dioxide Anion Gap BUN Creatinine Estimated GFR Random Glucose Lactic Acid Calcium Prot Corrected Calcium Total Bilirubin Direct Bilirubin Indirect Bilirubin AST ALT Alkaline Phosphatase Total Protein Albumin Urine Color Yellow Urine Clarity Clear Urine pH 6.0 Ur Specific [place] 1.020 Urine Protein 30 H Urine Glucose (UA) Negative Urine Ketones Trace H Urine Occult Blood Negative Urine Nitrate Negative Urine Bilirubin Negative Urine Urobilinogen Less than 2 Ur Leukocyte Esterase Negative Urine RBC Less than 1 Urine WBC Less than 1 Urine Mucus Few H Micro UA Comment Culture not ind Ur Microscopic Review Not Reportable Urine Culture Comments Culture not ind Urine Opiates Screen Pos H Acetaminophen Ur Barbiturates Screen Neg Ur Amphetamines Screen Neg U Benzodiazepines Scrn Neg Urine Cocaine Screen Neg U Cannabinoids Screen Neg 04/19/18 04/19/18 04/19/18 17:57 18:00 20:20 WBC RBC Hgb Hct MCV MCH MCHC RDW Plt Count MPV Neut % (Auto) Lymph % (Auto) [place] % (Auto) Eos % (Auto) Baso % (Auto) Neut # (Auto) Lymph # (Auto) [place] # (Auto) Eos # (Auto) Baso # (Auto) WBC Differential Differential Comment Puncture Site Patient Temperature O2 Saturation ABG pH ABG pCO2 ABG pO2 ABG HCO3 ABG O2 Content ABG Base Excess ABG Methemoglobin Medardo Test Hemoglobin Carboxyhemoglobin O2 Delivery Device Inspired O2 Critical Value Sodium Potassium Chloride Carbon Dioxide Anion Gap BUN Creatinine Estimated GFR Random Glucose Lactic Acid 3.0 H 3.8 H Calcium Prot Corrected Calcium Total Bilirubin Direct Bilirubin Indirect Bilirubin AST ALT Alkaline Phosphatase Total Protein Albumin Urine Color Urine Clarity Urine pH Ur Specific [place] Urine Protein Urine Glucose (UA) Urine Ketones Urine Occult Blood Urine Nitrate Urine Bilirubin Urine Urobilinogen Ur Leukocyte Esterase Urine RBC Urine WBC Urine Mucus Micro UA Comment Ur Microscopic Review Urine Culture Comments Urine Opiates Screen Acetaminophen 18.3 Ur Barbiturates Screen Ur Amphetamines Screen U Benzodiazepines Scrn Urine Cocaine Screen U Cannabinoids Screen 04/19/18 04/20/18 04/20/18 22:44 00:06 03:30 WBC 7.1 RBC 3.90 L Hgb 13.4 Hct 38.7 L MCV 99.3 MCH 34.3 H MCHC 34.5 RDW 13.8 Plt Count 186 MPV 7.7 Neut % (Auto) 76.3 H Lymph % (Auto) 13.3 [place] % (Auto) 8.6 H Eos % (Auto) 0.3 Baso % (Auto) 1.5 Neut # (Auto) 5.4 Lymph # (Auto) 0.9 L [place] # (Auto) 0.6 Eos # (Auto) 0.0 Baso # (Auto) 0.1 WBC Differential . Differential Comment Auto diff final Puncture Site Patient Temperature O2 Saturation ABG pH ABG pCO2 ABG pO2 ABG HCO3 ABG O2 Content ABG Base Excess ABG Methemoglobin Medardo Test Hemoglobin Carboxyhemoglobin O2 Delivery Device Inspired O2 Critical Value Sodium Potassium Chloride Carbon Dioxide Anion Gap BUN Creatinine Estimated GFR Random Glucose Lactic Acid 2.1 H Calcium Prot Corrected Calcium Total Bilirubin 0.5 Direct Bilirubin 0.1 Indirect Bilirubin 0.4 AST 31 ALT 38 Alkaline Phosphatase 68 Total Protein 6.4 D Albumin 3.0 L D Urine Color Urine Clarity Urine pH Ur Specific [place] Urine Protein Urine Glucose (UA) Urine Ketones Urine Occult Blood Urine Nitrate Urine Bilirubin Urine Urobilinogen Ur Leukocyte Esterase Urine RBC Urine WBC Urine Mucus Micro UA Comment Ur Microscopic Review Urine Culture Comments Urine Opiates Screen Acetaminophen Ur Barbiturates Screen Ur Amphetamines Screen U Benzodiazepines Scrn Urine Cocaine Screen U Cannabinoids Screen 04/20/18 04/20/18 04/20/18 03:30 03:30 10:53 WBC RBC Hgb Hct MCV MCH MCHC RDW Plt Count MPV Neut % (Auto) Lymph % (Auto) [place] % (Auto) Eos % (Auto) Baso % (Auto) Neut # (Auto) Lymph # (Auto) [place] # (Auto) Eos # (Auto) Baso # (Auto) WBC Differential Differential Comment Puncture Site Patient Temperature O2 Saturation ABG pH ABG pCO2 ABG pO2 ABG HCO3 ABG O2 Content ABG Base Excess ABG Methemoglobin Medardo Test Hemoglobin Carboxyhemoglobin O2 Delivery Device Inspired O2 Critical Value Sodium 139 Potassium 3.8 Chloride 109 H Carbon Dioxide 24.6 Anion Gap 5 BUN 16 Creatinine 1.02 Estimated GFR 71 L Random Glucose 99 Lactic Acid 1.2 Calcium 6.7 L* D 7.4 L* Prot Corrected Calcium 7.2 L* 8.0 L D Total Bilirubin Direct Bilirubin Indirect Bilirubin AST ALT Alkaline Phosphatase Total Protein 6.1 L 6.0 L Albumin Urine Color Urine Clarity Urine pH Ur Specific [place] Urine Protein Urine Glucose (UA) Urine Ketones Urine Occult Blood Urine Nitrate Urine Bilirubin Urine Urobilinogen Ur Leukocyte Esterase Urine RBC Urine WBC Urine Mucus Micro UA Comment Ur Microscopic Review Urine Culture Comments Urine Opiates Screen Acetaminophen Ur Barbiturates Screen Ur Amphetamines Screen U Benzodiazepines Scrn Urine Cocaine Screen U Cannabinoids Screen Microbiology 04/19/18 17:00 Blood - Peripheral Aerobic Blood Culture - Preliminary No growth in 1 day 04/19/18 17:00 Blood - Peripheral Anaerobic Blood Culture - Preliminary No growth in 1 day 04/19/18 17:00 Blood - Peripheral Aerobic Blood Culture - Preliminary No growth in 1 day 04/19/18 17:00 Blood - Peripheral Anaerobic Blood Culture - Preliminary No growth in 1 day - Imaging Impressions Abdomen/Pelvis CT 04/19/18 17:30 CONCLUSION: 1. Basilar and dependent airspace consolidation in the lungs. Differential diagnosis includes mild bronchopneumonia or aspiration. 2. Diffuse moderate to severe fatty infiltration of the liver. Prior cholecystectomy. No obstruction, free fluid or free air. Assessment and Plan - Plan Intentional overdose/suicidal ideation Patient under [place]t act, Psychiatry consulted Poison control contacted regarding acetaminophen and hydrocodone overdose Repeat acetaminophen level trending down Patient appears stable without signs of respiratory depression or withdrawal Narcan as needed Appreciate psychiatry consult Hypokalemia Likely related to lack of p.o. intake, IV delusional effect Responded to initial dose of 2 g of calcium gluconate IV, will repeat 1 g for further improvement Recheck with a.m. labs Possible aspiration pneumonia/leukocytosis/elevated lactic acid CT of the abdomen/pelvis significant for mild bronchopneumonia versus aspiration Patient lacks clinical signs of any severe form of pneumonia Continue vancomycin/Zosyn/Flagyl Lactic acid normalized Hypertension Continue home dose atenolol Clonidine as needed Amlodipine added to baseline treatment DVT Prophylaxis Heparin Discharge planning Patient will need to go to psych unit for psychiatric clearance prior to discharge home
[2018-04-20] MEDS: amLODIPine 5 MG Tablet PO SCH (17:19)
[2018-04-20] MEDS: Vancomycin Inj 1,250 MG in Sodium Chlor 0.9% Inj 250 ML IV.SIG SCH (17:20)
[2018-04-20] MEDS ORDERED: Calcium Gluconate Inj 1 GM in Dextrose 5% in Water Inj 100 ML IV.SIG ONE ×2 (18:00)
--- NOTE | 2018-04-20 18:31 | ECG ---
Date Performed: 04/19/2018 Time Performed: 14:30:39 PTAGE: 77 years EKG: SINUS TACHYCARDIA BORDERLINE LEFT AXIS DEVIATION ABNORMAL RHYTHM ECG PREVIOUS TRACING : 06/04/2005 05.59 Since the previous tracing, no significant change noted DOCTOR: Patrick Faulkner Interpretating Date/Time 04/20/2018 18:30:37
[2018-04-20] MEDS: Sodium Chloride 0.9% 2 ML Flush BID IV.FLUSH SCH (21:26)
[2018-04-21] MEDS: Piperacil/Tazo 4.5 GM Premix 4.5 GM/100 ML BAG IV.SIG SCH ×4 (05:37→22:48)
[2018-04-21] MEDS: Heparin - SQ 10,000 UNITS/ML Vial SQ SCH ×3 (05:40→21:31)
[2018-04-21 08:01] LABS: Calcium 7.8 mg/dL (8.5-10.1); Carbon Dioxide 22.5 meq/L (21.0-32.0); Potassium 3.5 meq/L (3.5-5.1)
[2018-04-21] MEDS: amLODIPine 5 MG Tablet PO SCH (09:01)
[2018-04-21] MEDS: Vancomycin Inj 1,250 MG in Sodium Chlor 0.9% Inj 250 ML IV.SIG SCH (09:01)
[2018-04-21] MEDS: Sodium Chloride 0.9% 2 ML Flush BID IV.FLUSH SCH ×2 (09:02→21:31)
[2018-04-21] MEDS: Senna/Docusate Sodium 8.6/50 MG Tablet PO SCH ×2 (09:02→21:32)
--- NOTE | 2018-04-21 18:08 | P.DS ---
Date of admission: 04/19/18 21:14 Primary care physician: Carolina Choudhury DO Brief History from admission: 77-year-old male with a past medical history significant for hypertension, hyperlipidemia, peptic ulcer disease and coronary artery disease status post stent placement presents to the emergency department for the evaluation of an intentional overdose. The patient reports he took approximately 20 hydrocodone based medications (he thinks it may have been combined with acetaminophen but is not sure), crush them up and swallowed them with milk. He states he did this because he wanted to . He states he has multiple financial problems and is currently being sued. He also reports that for the past 8 months he has not been taking his prescription medications because he feels he does not need to. The patient reports that he called EMS himself at approximately 230 this afternoon (ingestion was at 10 AM) because he regretted his decision. He does not have a history of depression and has not attempted suicide in the past. He denies chest pain or shortness of breath. No abdominal pain. No nausea/ vomiting/diarrhea. No fever/chills. No lateralizing signs/symptoms. DS: Summary Hospital Course: 77-year-old male admitted for suicide attempt with intentional overdose of 20 pills of Lortab. Poison control was called at time of admission he was treated accordingly. It does not appear that his liver had any insult from the high- dose of Tylenol. He did not suffer any respiratory depression and responded well to Narcan in the ER. He did develop hypoglycemia subsequently which responded well to IV replacement. He was being monitored on telemetry for the critical value, but has not had a recurrence. He has reached a point where he is medically stable for transfer to a [facility] unit. His calcium level should continue to be checked and the medicine team is going to be available to consult there and follow this value but he is otherwise medically cleared for transfer in stable for that unit. - Time Spent with Patient Total time spent providing and/or coordinating discharge services: Less than 30 minutes - Quality: VTE Deep Vein Thrombosis/Pulmonary Embolism Present on Admission: No Exam Vital signs: Vital Signs 04/20/18 19:54 04/20/18 20:00 04/20/18 23:38 Temperature 97.9 F 98.3 F Pulse Rate 79 84 70 Respiratory Rate 20 18 Blood Pressure 151/82 H 171/84 H Pulse Oximetry 97 95 04/21/18 04:00 04/21/18 04:30 04/21/18 08:00 Temperature 98.4 F 98.0 F 98.4 F Pulse Rate 78 70 61 Respiratory Rate 19 18 18 Blood Pressure 147/87 H 138/80 150/80 H Pulse Oximetry 95 94 L 94 L 04/21/18 12:00 04/21/18 16:00 Temperature 98.2 F 97.4 F L Pulse Rate 69 67 Respiratory Rate 18 18 Blood Pressure 142/72 H 143/77 H Pulse Oximetry 96 98 Intake & Output 04/20/18 04/21/18 04/21/18 18:59 06:59 18:59 Intake Total 3615.0 / 3615.0 400 / 400 462.5 / 462.5 Balance 3615.0 / 3615.0 400 / 400 462.5 / 462.5 Weight 88.8 kg Intake: IV 2655.0 / 2655.0 400 / 400 462.5 / 462.5 NS Inj 1,000 ML @ 100 mls/hr IV 1500 / 1500 .CONT .Q10H NOL[facility] Rx#:[id number] Calcium Gluconate Inj 1 GM In 230 / 230 D5W Inj 100 ML @ 110 mls/hr IV. SIG ONCE ONE Rx#:[id number] Zosyn 4.5 GM Premix 4.5 gm In 200 / 200 200 / 200 100 / 100 100 ml @ 200 mls/hr IV.SIG Q6H NOLA Rx#:[id number] Vancomycin Inj 1,250 MG In NS 525.0 / 525.0 262.5 / 262.5 Inj 250 ML @ 250 mls/hr IV.SIG Q18H NOLA Rx#:[id number] Flagyl 500 MG Inj 100 ML @ 100 200 / 200 200 / 200 100 / 100 mls/hr IV.SIG Q8H NOLA Rx#: [id number] Oral 960 / 960 Other: # Voids 3 1 Date of Last Bowel Movement 04/19/18 04/20/18 04/20/18 # Bowel Movements 1 Results Procedures completed during hospitalization: none Labs on day of discharge: Labs from last 24 hours 04/21/18 06:26 Sodium 141 Potassium 3.5 Chloride 110 H Carbon Dioxide 22.5 Anion Gap 9 BUN 14 Creatinine 1.22 Estimated GFR 58 L Random Glucose 100 Calcium 7.8 L Preliminary micro results at discharge 04/19/18 17:00 Aerobic Blood Culture - Preliminary Blood - Peripheral No growth in 2 days Anaerobic Blood Culture - Preliminary No growth in 2 days 04/19/18 17:00 Aerobic Blood Culture - Preliminary Blood - Peripheral No growth in 2 days Anaerobic Blood Culture - Preliminary No growth in 2 days - Impressions ITS Impressions Chest X-Ray 04/19/18 14:37 CONCLUSION: 1. Mild bibasilar airspace disease, presumably atelectasis. Abdomen/Pelvis CT 04/19/18 17:30 CONCLUSION: 1. Basilar and dependent airspace consolidation in the lungs. Differential diagnosis includes mild bronchopneumonia or aspiration. 2. Diffuse moderate to severe fatty infiltration of the liver. Prior cholecystectomy. No obstruction, free fluid or free air. Discharge Plan - Discharge Disposition Patient Disposition: 66 Disc To [facility] - Discharge Condition Condition: Stable - Discharge Order Discharge Orders: Discharge Order (Routine); Ordered 04/21/18 Ordered By: Huy Haynes - Discharge Details Discharge Comment: [facility] - Physicians Team Primary Care Provider: Carolina Choudhury Attending Provider: Huy Haynes Other Providers: Aba Saenz MD
[2018-04-22] MEDS ORDERED: Pharmacy Ordered Lab Info OTHER ONE (03:45)
[2018-04-22 04:12] LABS: Hematocrit 37.9 % (39.0-51.0); Hemoglobin 13.3 gm/dL (13.0-17.0); Mean Corpuscular HGB Conc 35.2 % (32.0-36.0); Mean Corpuscular Hemoglobin 34.6 pg (27.0-34.0); Mean Corpuscular Volume 98.3 fL (80.0-100.0); Mean Platelet Volume 7.9 fL (7.0-11.0); Platelet Count 174 th/mm3 (150-450); Red Blood Count 3.86 mil/mm3 (4.50-5.90); Red Cell Distribution Width 13.7 % (11.6-17.2); White Blood Count 5.8 th/mm3 (4.0-11.0)
[2018-04-22 04:31] LABS: Calcium 7.7 mg/dL (8.5-10.1); Carbon Dioxide 25.8 meq/L (21.0-32.0); Potassium 3.6 meq/L (3.5-5.1)
[2018-04-22 04:32] LABS: Vancomycin,Trough 11.4 mcg/mL (5.0-10.0)
[2018-04-22] MEDS: Heparin - SQ 10,000 UNITS/ML Vial SQ SCH ×3 (04:59→21:32)
[2018-04-22] MEDS: Piperacil/Tazo 4.5 GM Premix 4.5 GM/100 ML BAG IV.SIG SCH ×4 (04:59→22:40)
[2018-04-22] MEDS: Senna/Docusate Sodium 8.6/50 MG Tablet PO SCH ×2 (09:06→21:35)
[2018-04-22] MEDS: amLODIPine 5 MG Tablet PO SCH (09:06)
[2018-04-22] MEDS: Sodium Chloride 0.9% 2 ML Flush BID IV.FLUSH SCH ×2 (09:18→21:35)
[2018-04-22] MEDS: Pantoprazole Sodium 20 MG DR Tablet PO SCH (11:26)
--- NOTE | 2018-04-22 16:32 | P.PNIM ---
Subjective Interval history: Patient was discharged to psych yesterday but remains on the medical floor due to lack of [facility] beds. He requested medication for reflux. Physical Exam Vital signs: Vital Signs 04/21/18 20:00 04/22/18 00:00 04/22/18 03:38 Temperature 97.7 F 97.8 F Pulse Rate 70 72 70 Respiratory Rate 18 18 Blood Pressure 131/70 166/80 H Pulse Oximetry 97 95 04/22/18 04:00 04/22/18 04:57 04/22/18 08:00 Temperature 97.5 F L 97.8 F Pulse Rate 68 66 72 Respiratory Rate 18 17 Blood Pressure 165/87 H 178/97 H Pulse Oximetry 97 95 04/22/18 12:00 Temperature 97.3 F L Pulse Rate 68 Respiratory Rate 17 Blood Pressure 142/84 H Pulse Oximetry 98 Intake & Output 04/21/18 04/22/18 04/22/18 18:59 06:59 18:59 Intake Total 1422.5 / 1422.5 500 / 500 100 / 100 Output Total 480 / 480 Balance 942.5 / 942.5 500 / 500 100 / 100 Weight 88.5 kg Intake: IV 462.5 / 462.5 500 / 500 100 / 100 Zosyn 4.5 GM Premix 4.5 gm In 100 / 100 300 / 300 100 ml @ 200 mls/hr IV.SIG Q6H NOL[facility] Rx#:[id number] Vancomycin Inj 1,250 MG In NS 262.5 / 262.5 Inj 250 ML @ 250 mls/hr IV.SIG Q18H [facility] Rx#:[id number] Flagyl 500 MG Inj 100 ML @ 100 100 / 100 200 / 200 100 / 100 mls/hr IV.SIG Q8H [facility] Rx#: [id number] Oral 960 / 960 Output: Urine 480 / 480 Other: # Voids 4 Date of Last Bowel Movement 04/20/18 04/20/18 04/22/18 # Bowel Movements 2 Narrative: GENERAL: AAOx3, no acute distress SKIN: Warm and dry. No rashes HEAD: Atruamtic, normocephalic. EYES: No scleral icterus. No injection or drainage. ENT: Moist mucous membranes, patent nares, no erythema of oropharynx. NECK: Supple, trachea midline. No JVD or lymphadenopathy. Normal thyroid. CARDIOVASCULAR: Regular rate and rhythm. No murmurs, gallops, or rubs. RESPIRATORY: Breath sounds clear equal bilaterally. No crackles or wheezes. No accessory muscle use. GASTROINTESTINAL: Abdomen soft, non-tender, nondistended, normal active bowel sounds MUSCULOSKELETAL: No cyanosis, or edema. NEURO: CN II-XII grossly intact, no focal deficits, no slurring of speech Results - Labs CBC & Chem 7: 04/22/18 04:02 04/22/18 04:02 Laboratory Results - last 24 hr 04/22/18 04/22/18 04:02 04:02 WBC 5.8 RBC 3.86 L Hgb 13.3 Hct 37.9 L MCV 98.3 MCH 34.6 H MCHC 35.2 RDW 13.7 Plt Count 174 MPV 7.9 Sodium 143 Potassium 3.6 Chloride 111 H Carbon Dioxide 25.8 Anion Gap 6 BUN 15 Creatinine 1.39 H Estimated GFR 50 L Random Glucose 112 H Calcium 7.7 L Vancomycin Trough 11.4 H Microbiology 04/19/18 17:00 Blood - Peripheral Aerobic Blood Culture - Preliminary No growth in 3 days 04/19/18 17:00 Blood - Peripheral Anaerobic Blood Culture - Preliminary No growth in 3 days 04/19/18 17:00 Blood - Peripheral Aerobic Blood Culture - Preliminary No growth in 3 days 04/19/18 17:00 Blood - Peripheral Anaerobic Blood Culture - Preliminary No growth in 3 days - Procedures none Assessment and Plan - Plan Intentional overdose/suicidal ideation Patient under [employer] act, Psychiatry consulted Poison control contacted regarding acetaminophen and hydrocodone overdose Repeat acetaminophen level trending down, stable Patient showed no signs of respiratory depression or withdrawal Medically cleared 04/21/18 for discharge to psychiatry Appreciate psychiatry consult Hypokalemia, hypocalcemia Hypokalemia normalized Hypocalcemia improved, follow with a.m. labs Possible aspiration pneumonia/leukocytosis/elevated lactic acid CT of the abdomen/pelvis significant for mild bronchopneumonia versus aspiration Patient lacks clinical signs of any severe form of pneumonia Continue Zosyn/Flagyl, discontinued vancomycin on 04/21/2018 Lactic acid normalized Hypertension Continue home dose atenolol, continue amlodipine Clonidine as needed DVT Prophylaxis Heparin Discharge planning Patient has a discharge in place for [facility], no beds available Patient was medically cleared 04/21/2018 and has a 72-hour [employer] act window
[2018-04-23] MEDS: Piperacil/Tazo 4.5 GM Premix 4.5 GM/100 ML BAG IV.SIG SCH (04:34)
[2018-04-23] MEDS: Heparin - SQ 10,000 UNITS/ML Vial SQ SCH (06:11)
[2018-04-23 06:21] VITALS: O2SAT 96
[2018-04-23 09:10] VITALS: BP 163/79; PULSE 68; RESP 18; TEMP 98.2
[2018-04-23] MEDS: amLODIPine 5 MG Tablet PO SCH (09:11)
[2018-04-23] MEDS: Pantoprazole Sodium 20 MG DR Tablet PO SCH (09:11)
[2018-04-23] MEDS: Senna/Docusate Sodium 8.6/50 MG Tablet PO SCH (09:38)
[2018-04-23 10:10] LABS: Calcium 8.1 mg/dL (8.5-10.1); Carbon Dioxide 24.3 meq/L (21.0-32.0); Potassium 3.5 meq/L (3.5-5.1)
== END 2018-04-23 10:07 ==
LOC: NEPC 14:00 → NEDA 19:44 → INTOOBSV 19:44 → N05 22:54
PROVIDERS: ADMIT Family Medicine; ATTEND Family Medicine

== ENCOUNTER 2018-04-23 09:53 | Inpatient (IN) ==
[2018-04-23] MEDS ORDERED: amLODIPine 5 MG Tablet PO ONE (13:24)
--- NOTE | 2018-04-23 13:32 | P.CONIM ---
History of Present Illness Service: [facility] Consult date: 04/23/18 Reason for Consult: Tiki Primary Care Provider: Carolina Choudhury DO Chief Complaint: aspiration pneumionia History of Present Illness: This is a 77-year-old male with a past medical history significant for hypertension, hyperlipidemia, peptic ulcer disease and coronary artery disease status post stent placement presents to the emergency department for the evaluation of an intentional overdose by taking at least 20 hydrocodone based medications. The patient reports that he called EMS himself he regretted his decision. He does not have a history of depression and has not attempted suicide in the past. On admission patient was found to have aspiration pneumonia and was treated with IV antibiotic. Patient was transferred for medical psych for medical and Psychiatry management. Patient seen and examined, lying in bed, pleasant and cooperative, denies any pain, Chest pain or SOB. Denies any coughing, fever or chills. Denies any abdominal pain, nausea, vomiting, diarrhea or constipation. Patient stated he ids doing better, sted, this is a "much nicer room" than where he was, "much brighter". Review of Systems All other systems reviewed negative except as stated in HPI PMFSH - History History Provided By: Patient - Medical History Medical History: Medical History (Last Reviewed 04/23/18 @ 13:30 by TATE Laguna) Coronary artery disease HTN (hypertension) Hyperlipidemia Peptic ulcer disease - Surgical History Surgical History: Surgical History (Last Reviewed 04/23/18 @ 13:30 by TATE Laguna) History of back surgery Status post coronary artery stent placement - Family History Family History: Family History (Last Reviewed 04/23/18 @ 13:30 by TATE Laguna) Other Coronary artery disease - Tobacco History Second Hand Smoke Exposure: Yes Tobacco Use In Past 30 Days: No Smoking Status: Former smoker Tobacco Type: Cigarettes - Alcohol History How Often Do You Have a Drink Containing Alcohol: 4 or more times a week - Substance Use History Substance History: No History of Abuse Medications and Allergies Active Medications: Active Medications Clonidine HCl (Catapres) 0.1 mg PO Q6H PRN PRN Reason: SBP>160, DBP>90 Allergies Allergy/AdvReac Type Severity Reaction Status Date / Time No Known Allergies Allergy Verified 04/19/18 15:19 Exam Vital signs: Vital Signs 04/23/18 11:21 Temperature 98.2 F Pulse Rate 90 Respiratory Rate 17 Blood Pressure 175/91 H Pulse Oximetry 96 Intake & Output 04/22/18 04/23/18 04/23/18 18:59 06:59 18:59 Intake Total 480 / 480 Balance 480 / 480 Weight 86.5 kg Intake: Oral 480 / 480 Other: Weight On Admission 86.5 kg Narrative: GENERAL: well developed, well nourished, alert and oriented x 3Caucasian male in no apparent distress SKIN: Warm and dry. HEAD: Atraumatic. Normocephalic. EYES: Pupils equal and round. No scleral icterus. No injection or drainage. ENT: No nasal bleeding or discharge. Mucous membranes pink and moist. NECK: Trachea midline. No JVD. CARDIOVASCULAR: Regular rate and rhythm. RESPIRATORY: No accessory muscle use. Clear to auscultation. Breath sounds equal bilaterally. GASTROINTESTINAL: Abdomen obese soft, non-tender, nondistended. Hepatic and splenic margins not palpable. MUSCULOSKELETAL: Extremities without clubbing, cyanosis, or edema. No obvious deformities. NEUROLOGICAL: Awake and alert. No obvious cranial nerve deficits. Motor grossly within normal limits. Five out of 5 muscle strength in the arms and legs. Normal speech. PSYCHIATRIC: Appropriate mood and affect; insight and judgment poor Assessment and Plan - Assessment (1) Depression Code(s): F32.9 - Major depressive disorder, single episode, unspecified Status : Acute (2) Drug overdose Code(s): T50.901A - Poisoning by unspecified drugs, medicaments and biological substances, accidental (unintentional), initial encounter Status: Acute (3) PNA (pneumonia) Code(s): J18.9 - Pneumonia, unspecified organism Status: Acute (4) Suicidal ideations Code(s): R45.851 - Suicidal ideations Status: Acute (5) Major depressive disorder Code(s): F32.9 - Major depressive disorder, single episode, unspecified Status : Acute - Plan This is a 77-year-old male with a past medical history significant for hypertension, hyperlipidemia, peptic ulcer disease and coronary artery disease status post stent placement presents to the emergency department for the evaluation of an intentional overdose by taking at least 20 hydrocodone based medications. The patient reports that he called EMS himself he regretted his decision. He does not have a history of depression and has not attempted suicide in the past. On admission patient was found to have aspiration pneumonia and was treated with IV antibiotic. Patient was transfered for medical psych for medical and Psychiatry management. Intentional overdose/suicidal ideation/depression Patient under [employer] act S/P Poison control contacted regarding acetaminophen and hydrocodone overdose Repeat acetaminophen level trending down No signs/symptoms of respiratory depression Narcan as needed Psychiatric team for management Possible aspiration pneumonia/leukocytosis/elevated lactic acid CT of the abdomen/pelvis significant for mild bronchopneumonia versus aspiration -Status post vancomycin/Zosyn/Flagyl in the medical floor -Repeat lactic acid improving 1.2 -s/p IV fluid hydration -Continue p.o. antibiotic Augmentin, and Flagyl for 5 days Monitor signs and symptoms Acute kidney injury Creatinine 1.27 today, no baseline for comparison -Status post IV fluid hydration -Monitor renal function Encourage increase fluid intake Hypertension, uncontrolled BP elevated/labile -continue home amlodipine -add Clonidine as needed -monitor BP Coronary artery disease Status post stent No chest pain, no SOB -continue Aspirin Peptic ulcer disease/hyperlipidemia -Continue pantoprazole -Restart on pravastatin low-dose, monitor lipids and LFT DVT prophylaxis: Patient ambulatory Code Status: Full code Discussed Condition With: Patient and nurse (2) Drug overdose Qualifiers: Encounter type: initial encounter Injury intent: intentional self-harm Qualified Code(s): T50.902A - Poisoning by unspecified drugs, medicaments and biological substances, intentional self-harm, initial encounter (3) PNA (pneumonia) Qualifiers: Pneumonia type: due to unspecified organism Laterality: unspecified laterality Lung location: unspecified part of lung Qualified Code(s): J18.9 - Pneumonia, unspecified organism (5) Major depressive disorder Qualifiers: Major depression recurrence: single episode Major depression episode severity : severe Psychotic features: without psychotic features
[2018-04-23] MEDS ORDERED: Bisacodyl 10 MG Supp RECTAL PRN (13:48)
[2018-04-23] MEDS ORDERED: Aluminum/Magnesium/Simethacone Susp 30 ML UDC PO PRN (13:48)
[2018-04-23] MEDS ORDERED: cloNIDine Susp (NICU) 20 MCG/ML 30 ML Bottle PO PRN (13:49)
[2018-04-23] MEDS: amLODIPine 5 MG Tablet PO SCH (15:54)
[2018-04-23] MEDS: Pantoprazole Sodium 20 MG DR Tablet PO SCH (15:54)
[2018-04-23] MEDS: metroNIDAZOLE 500 MG Tablet PO SCH ×2 (16:04→22:00)
[2018-04-23] MEDS: Amoxicillin/Clavulanate 875/125 MG Tablet PO SCH (21:59)
[2018-04-23] MEDS: Senna/Docusate Sodium 8.6/50 MG Tablet PO SCH (22:00)
[2018-04-24] MEDS: Pantoprazole Sodium 20 MG DR Tablet PO SCH (08:08)
[2018-04-24] MEDS: metroNIDAZOLE 500 MG Tablet PO SCH ×2 (08:08→20:54)
[2018-04-24] MEDS: Amoxicillin/Clavulanate 875/125 MG Tablet PO SCH ×2 (08:08→20:53)
[2018-04-24] MEDS: amLODIPine 5 MG Tablet PO SCH (08:09)
[2018-04-24] MEDS: Senna/Docusate Sodium 8.6/50 MG Tablet PO SCH ×2 (08:09→20:54)
[2018-04-24 11:39] LABS: Baso % (Auto) 0.6 % (0.0-2.0); Eos # (Auto) 0.2 th/mm3 (0.0-0.4); Hematocrit 41.2 % (39.0-51.0); Hemoglobin 14.4 gm/dL (13.0-17.0); Lymph # (Auto) 0.7 th/mm3 (1.0-4.8); Lymph % (Auto) 9.5 % (9.0-44.0); Mean Corpuscular HGB Conc 34.8 % (32.0-36.0); Mean Corpuscular Hemoglobin 34.7 pg (27.0-34.0); Mean Corpuscular Volume 99.6 fL (80.0-100.0); Mean Platelet Volume 7.8 fL (7.0-11.0); Mono # (Auto) 0.7 th/mm3 (0.0-0.9); Mono % (Auto) 9.6 % (0.0-8.0); Neut # (Auto) 5.7 th/mm3 (1.8-7.7); Neut % (Auto) 77.3 % (16.0-70.0); Platelet Count 192 th/mm3 (150-450); Red Blood Count 4.14 mil/mm3 (4.50-5.90); Red Cell Distribution Width 14.2 % (11.6-17.2); White Blood Count 7.4 th/mm3 (4.0-11.0)
[2018-04-24 12:03] LABS: Albumin 3.3 g/dL (3.4-5.0); Anion Gap 8 meq/L (5-15); Aspartate Aminotransferase 88 U/L (15-37); Blood Urea Nitrogen 15 mg/dL (7-18); Calcium 8.6 mg/dL (8.5-10.1); Chloride 108 meq/L (98-107); Glomerular Filtration Rate 55 mL/min (>89); Glucose,Random 100 mg/dL (74-106); Magnesium 2.1 mg/dL (1.5-2.5); Potassium 3.9 meq/L (3.5-5.1); Sodium 141 meq/L (136-145)
[2018-04-24 12:04] LABS: Alanine Aminotransferase 103 U/L (12-78); Cholesterol 225 mg/dL (120-200)
[2018-04-24 12:07] LABS: Alkaline Phosphatase 65 U/L (45-117); Chol/HDL Ratio 2.87 Ratio; HDL Cholesterol 78.3 mg/dL (40.0-60.0); LDL Cholesterol,Calculated 114 mg/dL (0-99); Total Protein 7.1 g/dL (6.4-8.2); Triglycerides 166 mg/dL (42-150)
--- NOTE | 2018-04-24 13:30 | P.HPPSY ---
Provisional Diagnosis Admission Date: April 23, 2018 10:18 Major Depressive Disorder, single episode, severe Generalized Anxiety Disorder Floydada I.: Major Depressive D/O Floydada III.: S/P hydrocodone overdose HTN, Hyperlipidemia Competence Certification of Person's Competence To Provide Express and Informed Consent I have personally examined Slava Díaz, a person being served at [facility] on, April 24, 2018 1324. Express and informed consent means consent voluntarily given in writing, by a competent person, after sufficient explanation and disclosure of the subject matter involved to enable the person to make a knowing and willful decision without any element of force, fraud, deceit, duress, or other form of constraint or coercion. This person is 18 years of age or older, is not now known to be incompetent to consent to treatment with a guardian advocate, and does not have a health care surrogate or proxy currently making medical treatment decisions. I have found this person to be one of the following: [x] Competent to provide express and informed consent, as defined above, for voluntary admission to this facility and is competent to provide express and informed consent for treatment. He/she has the consistent capacity to make well reasoned, willful, and knowing decisions concerning his or her medical or mental health treatment. The person fully and consistently understands the purpose of the admission for examination/placement and is fully capable of personally exercising all rights assured [place] [] Incompetent to provide express and informed consent to voluntary admission, and this is incompetent to provide express and informed consent to treatment. The person must be transferred to involuntary status and a petition for a guardian advocate filed with the Circuit Court. [] Refusing to provide express and informed consent to voluntary admission but is competent to provide express and informed consent for treatment. The person must be discharged or transferred to involuntary status. Form shall be completed within 24 hours of a person's arrival at the receiving facility and filed in the clinical record of each person: 1. Admitted on a voluntary basis 2. Permitted to provide express and informed consent to his/her own treatment 3. Allowed to transfer from involuntary to voluntary status 4. Prior to permitting a person to consent to his or her own treatment after having been previously found incompetent to consent to treatment. History of Present Illness Capacity: Has capacity Chief Complaint: "I got overwhelmed" History of Present Illness: Pt is a 77 YOWM admitted to med/psych unit due to suicide attempt via intentional overdose and depression. Stressors include current marital separation and pending divorce, and financial problems resulting from a lawsuit. He reports increasing anxiety, poor sleep, anhedonia, low energy and depressed mood and suicidal ideations X one month. He reports that he has also been drinking more often at night in order to try and get to sleep. He states that he had a meeting with his workers compensation defense attorney and he became overwhelmed by anxiety and decided that suicide was the best option to "just end it all". He states that he took approximately 20 tablets of hydrocodone (left over from an old prescription) intentionally to end his life. He states that after the ingestion , he thought about things that he still had to look forward to and decided to call EMS for help. He denies previous hx of psychiatric treatment. He denies previous episode of depression but reports that he has had a lot of difficulty with anxiety over the years. No hx of psychosis or rogerio/hypomania. - Inpatient Certification I certify that the inpatient services were ordered in accordance with Medicare regulations governing the order. This includes certification that hospital inpatient services are reasonable and necessary and in the case of services not specified as inpatient-only under 42 CFR 419.22(n), that they are appropriately provided as inpatient services in accordance to with the 2-midnight benchmark under 43 CFR 412.3(e) I certify that inpatient psychiatric hospital services are medically necessary. Evaluation and treatment and/or diagnostic testing are expected to improve the patient's condition. The patient needs on a daily basis, active treatment furnished directly by or requiring the supervision of inpatient psychiatric facility personnel. Estimated Total Length of Stay (Days): 7 Plans for Post Hospital Care: Home [facility] - History History Provided By: Patient - Medical History Medical History: Medical History (Last Reviewed 04/24/18 @ 13:29 by Radha Ring MD) Coronary artery disease HTN (hypertension) Hyperlipidemia Peptic ulcer disease - Surgical History Surgical History: Surgical History (Last Reviewed 04/24/18 @ 13:29 by Radha Ring MD) History of back surgery Status post coronary artery stent placement - Family History Family History: Family History (Last Reviewed 04/24/18 @ 13:29 by Radha Ring MD) Other Coronary artery disease - Social History I have reviewed the patient's Social History: Yes - Tobacco History Second Hand Smoke Exposure: Yes Tobacco Use In Past 30 Days: No Smoking Status: Former smoker Tobacco Type: Cigarettes - Alcohol History How Often Do You Have a Drink Containing Alcohol: 4 or more times a week - Substance Use History Substance History: No History of Abuse Medications and Allergies Active Medications: Active Medications Al Hydrox/Mg Hydrox/Simethicone (Mag-Al Plus Susp Liq) 30 ml PO Q6H PRN PRN Reason: DYSPEPSIA Al Hydroxide/Mg Hydroxide (Milk Of Magnesia Liq) 30 ml PO Q12H PRN PRN Reason: Mild Constipation Amlodipine Besylate (Norvasc) 5 mg PO DAILY [facility] Last Admin: 04/24/18 08:09 Dose: 5 mg Amoxicillin/Clavulanate Potassium (Augmentin 875/125 Mg) 1 tab PO BID [facility] Stop: 04/28/18 21:00 Last Admin: 04/24/18 08:08 Dose: 1 tab Aspirin (Aspirin Chew) 81 mg PO DAILY [facility] Last Admin: 04/24/18 08:08 Dose: 81 mg Bisacodyl (Dulcolax Supp) 10 mg RECTAL DAILY PRN PRN Reason: SEVERE CONSITIPATION Clonidine HCl (Catapres) 0.1 mg PO Q6H PRN PRN Reason: SBP>160, DBP>90 Lactulose (Lactulose Liq) 30 ml PO DAILY PRN PRN Reason: SEVERE CONSITIPATION Metronidazole (Flagyl) 500 mg PO BID [facility] Stop: 04/28/18 14:00 Last Admin: 04/24/18 08:08 Dose: 500 mg Pantoprazole Sodium (Protonix) 20 mg PO DAILY [facility] Last Admin: 04/24/18 08:08 Dose: 20 mg Pravastatin Sodium (Pravachol) 20 mg PO HS [facility] Last Admin: 04/23/18 22:02 Dose: Not Given Senna/Docusate Sodium (Porsha-Colace) 1 tab PO BID [facility] Last Admin: 04/24/18 08:09 Dose: Not Given Sennosides (Senokot) 17.2 mg PO Q12H PRN PRN Reason: Moderate Constipation Allergies Allergy/AdvReac Type Severity Reaction Status Date / Time No Known Allergies Allergy Verified 04/19/18 15:19 Results - Labs CBC & Chem 7: 04/24/18 11:18 04/24/18 11:18 Labs: Laboratory Results - last 24 hr 04/24/18 04/24/18 11:18 11:18 WBC 7.4 RBC 4.14 L Hgb 14.4 Hct 41.2 MCV 99.6 MCH 34.7 H MCHC 34.8 RDW 14.2 Plt Count 192 MPV 7.8 Neut % (Auto) 77.3 H Lymph % (Auto) 9.5 [place] % (Auto) 9.6 H Eos % (Auto) 3.0 Baso % (Auto) 0.6 Neut # (Auto) 5.7 Lymph # (Auto) 0.7 L [place] # (Auto) 0.7 Eos # (Auto) 0.2 Baso # (Auto) 0.0 WBC Differential . Differential Comment Auto diff final Sodium 141 Potassium 3.9 Chloride 108 H Carbon Dioxide 25.0 Anion Gap 8 BUN 15 Creatinine 1.27 Estimated GFR 55 L Random Glucose 100 Calcium 8.6 Magnesium 2.1 Total Bilirubin 0.3 AST 88 H ALT 103 H Alkaline Phosphatase 65 Total Protein 7.1 D Albumin 3.3 L Triglycerides 166 H Cholesterol 225 H LDL Cholesterol, Calc 114 H HDL Cholesterol 78.3 H Cholesterol/HDL Ratio 2.87 Exam Vital signs: Vital Signs 04/24/18 05:10 Temperature 97.6 F Pulse Rate 69 Respiratory Rate 17 Blood Pressure 146/86 H Pulse Oximetry 96 Intake & Output 04/23/18 04/24/18 04/24/18 18:59 06:59 18:59 Intake Total 1440 / 1440 960 / 960 Balance 1440 / 1440 960 / 960 Weight 86.5 kg Intake: Oral 1440 / 1440 960 / 960 Other: # Voids 1 Date of Last Bowel Movement 04/23/18 Weight On Admission 86.5 kg Mental Status Examination Appearance: Appropriate Consciousness: Alert Orientation: x4 Motor Activity: Normal gait Speech: Unremarkable Language: Adequate Fund of Knowledge: Adequate Attention and Concentration: Adequate Memory: Unremarkable Mood: Sad, Anxious Affect: Other (congruent) Thought Process & Associations: Intact Thought Content: Appropriate Hallucination Type: None Delusion Type: None Suicidal Ideation: No (denies today) Suicidal Plan: No Suicidal Intention: No Homicidal Ideation: No Homicidal Plan: No Homicidal Intention: No Insight: Fair Judgment: Impulsive Assessment and Plan - Assessment (1) Major depress dis, severe Code(s): F32.2 - Major depressive disorder, single episode, severe without psychotic features Status: Acute (2) Generalized anxiety disorder Code(s): F41.1 - Generalized anxiety disorder Status: Acute - Plan Plan: Estimated LOS: [] days Pt is agreeable for voluntary admission and demonstrates capacity. Discussed with pt options for treatment and he consents to trial of sertraline. Will start sertraline tonight and titrate to effective dose. Justification for Continued Inpatient Stay: monitoring for safeyt
--- NOTE | 2018-04-24 13:49 | P.PNIM ---
Subjective Interval history: Follow up hypertension, hyperlipidemia, peptic ulcer disease and coronary artery disease status post stent placement and intentional overdose. Patient sitting int he chair, stated doing well and better. Stated wants to know if he can go home now. Discussed Psychiatry has to evaluate him. Patient deneis any thoughts of hurting himself at this time. Denies any headache or dizziness, pain , chest pain or sob, patient denies any abdominal pain, nausea or vomiting. Patient stated demetrio was eating well and have good bowel movement. Denies any fever or chills. Physical Exam Vital signs: Vital Signs 04/24/18 05:10 Temperature 97.6 F Pulse Rate 69 Respiratory Rate 17 Blood Pressure 146/86 H Pulse Oximetry 96 Intake & Output 04/23/18 04/24/18 04/24/18 18:59 06:59 18:59 Intake Total 1440 / 1440 960 / 960 Balance 1440 / 1440 960 / 960 Weight 86.5 kg Intake: Oral 1440 / 1440 960 / 960 Other: # Voids 1 Date of Last Bowel Movement 04/23/18 Weight On Admission 86.5 kg Narrative: GENERAL: well developed, well nourished, alert and oriented x 3Caucasian male in no apparent distress SKIN: Warm and dry. HEAD: Atraumatic. Normocephalic. EYES: Pupils equal and round. No scleral icterus. No injection or drainage. ENT: No nasal bleeding or discharge. Mucous membranes pink and moist. NECK: Trachea midline. No JVD. CARDIOVASCULAR: Regular rate and rhythm. RESPIRATORY: No accessory muscle use. Clear to auscultation. Breath sounds equal bilaterally. GASTROINTESTINAL: Abdomen obese soft, non-tender, nondistended. Hepatic and splenic margins not palpable. MUSCULOSKELETAL: Extremities without clubbing, cyanosis, or edema. No obvious deformities. NEUROLOGICAL: Awake and alert. No obvious cranial nerve deficits. Motor grossly within normal limits. Five out of 5 muscle strength in the arms and legs. Normal speech. PSYCHIATRIC: Appropriate mood and affect; insight and judgment poor Results - Labs CBC & Chem 7: 04/24/18 11:18 04/24/18 11:18 Laboratory Results - last 24 hr 04/24/18 04/24/18 11:18 11:18 WBC 7.4 RBC 4.14 L Hgb 14.4 Hct 41.2 MCV 99.6 MCH 34.7 H MCHC 34.8 RDW 14.2 Plt Count 192 MPV 7.8 Neut % (Auto) 77.3 H Lymph % (Auto) 9.5 [place] % (Auto) 9.6 H Eos % (Auto) 3.0 Baso % (Auto) 0.6 Neut # (Auto) 5.7 Lymph # (Auto) 0.7 L [place] # (Auto) 0.7 Eos # (Auto) 0.2 Baso # (Auto) 0.0 WBC Differential . Differential Comment Auto diff final Sodium 141 Potassium 3.9 Chloride 108 H Carbon Dioxide 25.0 Anion Gap 8 BUN 15 Creatinine 1.27 Estimated GFR 55 L Random Glucose 100 Calcium 8.6 Magnesium 2.1 Total Bilirubin 0.3 AST 88 H ALT 103 H Alkaline Phosphatase 65 Total Protein 7.1 D Albumin 3.3 L Triglycerides 166 H Cholesterol 225 H LDL Cholesterol, Calc 114 H HDL Cholesterol 78.3 H Cholesterol/HDL Ratio 2.87 Assessment and Plan - Assessment (1) Depression Code(s): F32.9 - Major depressive disorder, single episode, unspecified Status : Acute (2) Drug overdose Code(s): T50.901A - Poisoning by unspecified drugs, medicaments and biological substances, accidental (unintentional), initial encounter Status: Acute (3) PNA (pneumonia) Code(s): J18.9 - Pneumonia, unspecified organism Status: Acute (4) Suicidal ideations Code(s): R45.851 - Suicidal ideations Status: Acute (5) Major depressive disorder Code(s): F32.9 - Major depressive disorder, single episode, unspecified Status : Acute - Plan This is a 77-year-old male with a past medical history significant for hypertension, hyperlipidemia, peptic ulcer disease and coronary artery disease status post stent placement presents to the emergency department for the evaluation of an intentional overdose by taking at least 20 hydrocodone based medications. The patient reports that he called EMS himself he regretted his decision. He does not have a history of depression and has not attempted suicide in the past. On admission patient was found to have aspiration pneumonia and was treated with IV antibiotic. Patient was transfered for medical psych for medical and Psychiatry management. Intentional overdose/suicidal ideation/depression Patient under [place]t act -S/P Poison control contacted regarding acetaminophen and hydrocodone overdose -Repeat acetaminophen level trending down -No signs/symptoms of respiratory depression -Narcan as needed -Psychiatric team for management Possible aspiration pneumonia/leukocytosis/elevated lactic acid CT of the abdomen/pelvis significant for mild bronchopneumonia versus aspiration -Status post vancomycin/Zosyn/Flagyl in the medical floor -Repeat lactic acid improving 1.2 -s/p IV fluid hydration -Continue p.o. antibiotic Augmentin, and Flagyl for 5 days Monitor signs and symptoms Acute kidney injury Creatinine 1.27, no baseline for comparison -Status post IV fluid hydration -Monitor renal function -Encourage increase fluid intake Hypertension, uncontrolled BP elevated/labile -continue home amlodipine -continue Clonidine as needed for SBP>160 or DBP >90 -monitor BP Coronary artery disease Status post stent No chest pain, no SOB -continue Aspirin Peptic ulcer disease/hyperlipidemia -Continue pantoprazole -Restart on pravastatin low-dose, monitor lipids and LFT DVT prophylaxis: Patient ambulatory Code Status: full code Discussed Condition With: patient and nurse (2) Drug overdose Qualifiers: Encounter type: initial encounter Injury intent: intentional self-harm Qualified Code(s): T50.902A - Poisoning by unspecified drugs, medicaments and biological substances, intentional self-harm, initial encounter (3) PNA (pneumonia) Qualifiers: Pneumonia type: due to unspecified organism Laterality: unspecified laterality Lung location: unspecified part of lung Qualified Code(s): J18.9 - Pneumonia, unspecified organism (5) Major depressive disorder Qualifiers: Major depression recurrence: single episode Major depression episode severity : severe Psychotic features: without psychotic features
[2018-04-24 14:19] LABS: Hemoglobin A1c 5.3 % (4.3-6.0)
[2018-04-24] MEDS: Sertraline 50 MG Tablet PO SCH (20:54)
--- NOTE | 2018-04-25 08:46 | P.PN ---
Subjective Interval history: Follow-up OD, PNA and BARBARA. Patient is seen and examined sitting up in bed in no acute distress. He denies any fevers, chills, cough, SOB, nausea, vomiting or diarrhea. He is tells me he may be released today or tomorrow. We discuss transferring out to the medical psych unit, however patient is reluctant and states that he was told that downstairs is not a good place. He voices no acute concerns or complaints at the moment. Physical Exam Vital signs: Vital Signs 04/24/18 18:00 04/25/18 05:43 Temperature 97.9 F 98 F Pulse Rate 74 70 Respiratory Rate 18 17 Blood Pressure 144/81 H 169/92 H Pulse Oximetry 96 Intake & Output 04/24/18 04/25/18 04/25/18 18:59 06:59 18:59 Intake Total 1120 / 1120 960 / 960 480 / 480 Balance 1120 / 1120 960 / 960 480 / 480 Intake: Oral 1120 / 1120 960 / 960 480 / 480 Other: # Voids 3 1 Date of Last Bowel Movement 04/23/18 Narrative: GENERAL: well developed, well nourished male in no apparent distress SKIN: Warm and dry. HEAD: Atraumatic. Normocephalic. EYES: Pupils equal and round. No scleral icterus. No injection or drainage. ENT: No nasal bleeding or discharge. Mucous membranes pink and moist. NECK: Trachea midline. CARDIOVASCULAR: Regular rate and rhythm. RESPIRATORY: No accessory muscle use. Clear to auscultation. Breath sounds equal bilaterally. GASTROINTESTINAL: Abdomen obese soft, non-tender, nondistended. +BS MUSCULOSKELETAL: Extremities without clubbing, cyanosis, or edema. No obvious deformities. NEUROLOGICAL: Awake and alert. No obvious cranial nerve deficits. Motor grossly within normal limits. Normal speech. PSYCHIATRIC: Appropriate mood and affect. Results - Labs CBC & Chem 7: 04/24/18 11:18 04/25/18 09:59 Laboratory Results - last 24 hr 04/24/18 04/24/18 04/24/18 11:18 11:18 11:18 WBC 7.4 RBC 4.14 L Hgb 14.4 Hct 41.2 MCV 99.6 MCH 34.7 H MCHC 34.8 RDW 14.2 Plt Count 192 MPV 7.8 Neut % (Auto) 77.3 H Lymph % (Auto) 9.5 [place] % (Auto) 9.6 H Eos % (Auto) 3.0 Baso % (Auto) 0.6 Neut # (Auto) 5.7 Lymph # (Auto) 0.7 L [place] # (Auto) 0.7 Eos # (Auto) 0.2 Baso # (Auto) 0.0 WBC Differential . Differential Comment Auto diff final Sodium 141 Potassium 3.9 Chloride 108 H Carbon Dioxide 25.0 Anion Gap 8 BUN 15 Creatinine 1.27 Estimated GFR 55 L Random Glucose 100 Hemoglobin A1c 5.3 Calcium 8.6 Magnesium 2.1 Total Bilirubin 0.3 AST 88 H ALT 103 H Alkaline Phosphatase 65 Total Protein 7.1 D Albumin 3.3 L Triglycerides 166 H Cholesterol 225 H LDL Cholesterol, Calc 114 H HDL Cholesterol 78.3 H Cholesterol/HDL Ratio 2.87 Assessment and Plan - Assessment (1) Depression Code(s): F32.9 - Major depressive disorder, single episode, unspecified Status : Acute (2) Drug overdose Code(s): T50.901A - Poisoning by unspecified drugs, medicaments and biological substances, accidental (unintentional), initial encounter Status: Acute (3) PNA (pneumonia) Code(s): J18.9 - Pneumonia, unspecified organism Status: Acute (4) Suicidal ideations Code(s): R45.851 - Suicidal ideations Status: Acute (5) Major depressive disorder Code(s): F32.9 - Major depressive disorder, single episode, unspecified Status : Acute - Plan This is a 77-year-old male with a past medical history significant for hypertension, hyperlipidemia, peptic ulcer disease and coronary artery disease status post stent placement presents to the emergency department for the evaluation of an intentional overdose by taking at least 20 hydrocodone based medications. He does not have a history of depression and has not attempted suicide in the past. On admission patient was found to have aspiration pneumonia and was treated with IV antibiotic. Patient was transferred for medical psych for medical and Psychiatry management. Intentional overdose/suicidal ideation/depression Patient under [place] act -S/P Poison control contacted regarding acetaminophen and hydrocodone overdose -Repeat acetaminophen level trending down -Psychiatric team for management Possible aspiration pneumonia/leukocytosis/elevated lactic acid CT of the abdomen/pelvis significant for mild bronchopneumonia versus aspiration -Treated with IV vancomycin/Zosyn/Flagyl in the medical floor -Complete p.o. antibiotic Augmentin, and Flagyl for 5 days - Respiratory status stable Acute kidney injury - Improving -Monitor renal function -Encourage increase fluid intake Hypertension, uncontrolled -BP this morning sill on the higher side, increase Norvasc to 10mg daily -continue Clonidine as needed for SBP>160 or DBP >90 -monitor BP Coronary artery disease w/ stenting HLD No chest pain, no SOB -continue Aspirin, recently restarted on statin, mildly elevated LFT's - Monitor Peptic ulcer disease -Continue pantoprazole DVT prophylaxis: Patient ambulatory Patient medically stable and could be transferred to regular psychiatric unit if psychiatrist believes this is appropriate. Discussed Condition With: Patient and RN (2) Drug overdose Qualifiers: Encounter type: initial encounter Injury intent: intentional self-harm Qualified Code(s): T50.902A - Poisoning by unspecified drugs, medicaments and biological substances, intentional self-harm, initial encounter (3) PNA (pneumonia) Qualifiers: Pneumonia type: due to unspecified organism Laterality: unspecified laterality Lung location: unspecified part of lung Qualified Code(s): J18.9 - Pneumonia, unspecified organism (5) Major depressive disorder Qualifiers: Major depression recurrence: single episode Major depression episode severity : severe Psychotic features: without psychotic features
[2018-04-25] MEDS: Pantoprazole Sodium 20 MG DR Tablet PO SCH (09:23)
[2018-04-25] MEDS: metroNIDAZOLE 500 MG Tablet PO SCH ×2 (09:23→21:00)
[2018-04-25] MEDS: amLODIPine 5 MG Tablet PO SCH (09:23)
[2018-04-25] MEDS: Amoxicillin/Clavulanate 875/125 MG Tablet PO SCH ×2 (09:23→21:00)
[2018-04-25] MEDS: Senna/Docusate Sodium 8.6/50 MG Tablet PO SCH ×2 (09:23→21:00)
[2018-04-25 10:54] LABS: Albumin 3.3 g/dL (3.4-5.0); Anion Gap 10 meq/L (5-15); Aspartate Aminotransferase 72 U/L (15-37); Blood Urea Nitrogen 15 mg/dL (7-18); Calcium 8.4 mg/dL (8.5-10.1); Carbon Dioxide 23.6 meq/L (21.0-32.0); Chloride 107 meq/L (98-107); Glomerular Filtration Rate 56 mL/min (>89); Glucose,Random 152 mg/dL (74-106); Potassium 3.7 meq/L (3.5-5.1); Sodium 141 meq/L (136-145)
[2018-04-25 11:03] LABS: Alanine Aminotransferase 93 U/L (12-78); Alkaline Phosphatase 67 U/L (45-117); Total Protein 6.9 g/dL (6.4-8.2)
[2018-04-25] MEDS: Ibuprofen 400 MG Tablet PO PRN ×2 (16:42→19:00)
--- NOTE | 2018-04-25 16:49 | P.PNPSY ---
Subjective Chief Complaint: "I got overwhelmed" Remarks: Patient seen for follow-up, chart reviewed. Discussion with nursing staff reported that patient unable to treatment for aspiration pneumonia, noted with elevated blood pressure readings, as well as LFTs, but has poor sleep last night. Patient was found sitting hospital chair noted B, cooperative. Patient stated that he had been feeling depressed for the past month feeling overwhelmed with ongoing lawsuit against him as well as decreased sleep, energy and appetite along with concentration and preoccupation of psychosocial stressors. He states that on the day of suicide he has felt very overwhelmed and had attempted to overdose which she states had regretted and called EMS. He states that there was a "stupid thing to do" and states that he is looking forward to living and stating feeling less anxious and depressed due to news of resolution of this lawsuit. Patient denies any perceptional services or delusions at this time. Review of Systems All other systems reviewed negative except as stated in HPI Mental Status Examination Appearance: Appropriate Consciousness: Alert Orientation: x4 Motor Activity: Normal gait Speech: Unremarkable Language: Adequate Fund of Knowledge: Adequate Attention and Concentration: Adequate Memory: Unremarkable Mood: Sad, Anxious Affect: Other (congruent) Thought Process & Associations: Intact Thought Content: Appropriate Hallucination Type: None Delusion Type: None Suicidal Ideation: No (denies today) Suicidal Plan: No Suicidal Intention: No Homicidal Ideation: No Homicidal Plan: No Homicidal Intention: No Insight: Fair Judgment: Impulsive Assessment and Plan - Assessment (1) Major depress dis, severe Code(s): F32.2 - Major depressive disorder, single episode, severe without psychotic features Status: Acute (2) Generalized anxiety disorder Code(s): F41.1 - Generalized anxiety disorder Status: Acute - Plan Plan: Patient at this time noted to be minimizing recent depressive symptoms prior to suicide attempt, states that he is more optimistic due to ongoing resolution of current lawsuit. We will continue current treatment. We will continue to monitor mood and behavior. Hospitalist input appreciated. Discharge planning in progress. Justification for Continued Inpatient Stay: At risk of further decompensation at lower level care.
[2018-04-25] MEDS: Sertraline 50 MG Tablet PO SCH (21:00)
[2018-04-26] MEDS: Ibuprofen 400 MG Tablet PO PRN (04:29)
[2018-04-26] MEDS: Amoxicillin/Clavulanate 875/125 MG Tablet PO SCH ×2 (09:01→20:34)
[2018-04-26] MEDS: metroNIDAZOLE 500 MG Tablet PO SCH ×2 (09:01→20:34)
[2018-04-26] MEDS: amLODIPine 5 MG Tablet PO SCH (09:01)
[2018-04-26] MEDS: Pantoprazole Sodium 20 MG DR Tablet PO SCH (09:02)
[2018-04-26] MEDS: Senna/Docusate Sodium 8.6/50 MG Tablet PO SCH ×2 (09:02→20:34)
--- NOTE | 2018-04-26 14:48 | P.PN ---
Subjective Interval history: Follow-up OD, PNA and BARBARA. The patient reports feeling better again today. He reports having a mild headache earlier, however this has improved. He denies any fevers or chills, cough, chest pain, shortness breath, or abdominal complaints. He states he is eating well. Denies any other medical complaints at this time. Physical Exam Vital signs: Vital Signs 04/25/18 17:43 04/26/18 05:35 Temperature 98.3 F 98.6 F Pulse Rate 76 65 Respiratory Rate 18 17 Blood Pressure 143/83 H 166/86 H Pulse Oximetry 96 95 Intake & Output 04/25/18 04/26/18 04/26/18 18:59 06:59 18:59 Intake Total 2160 / 2160 840 / 840 Balance 2160 / 2160 840 / 840 Intake: Oral 2160 / 2160 840 / 840 Other: # Voids 1 Narrative: GENERAL: well developed, well nourished male in no apparent distress SKIN: Warm and dry. HEENT: Atraumatic. Normocephalic. Pupils equal and round. Mucous membranes pink and moist. NECK: Trachea midline. CARDIOVASCULAR: Regular rate and rhythm. RESPIRATORY: No accessory muscle use. Clear to auscultation. Breath sounds equal bilaterally. GASTROINTESTINAL: Abdomen obese soft, non-tender, nondistended. +BS MUSCULOSKELETAL: Extremities without clubbing, cyanosis, or edema. No obvious deformities. NEUROLOGICAL: Awake and alert. No obvious cranial nerve deficits. Motor grossly within normal limits. Normal speech. PSYCHIATRIC: Appropriate mood and affect. Results - Labs CBC & Chem 7: 04/24/18 11:18 04/25/18 09:59 Assessment and Plan - Assessment (1) Depression Code(s): F32.9 - Major depressive disorder, single episode, unspecified Status : Acute (2) Drug overdose Code(s): T50.901A - Poisoning by unspecified drugs, medicaments and biological substances, accidental (unintentional), initial encounter Status: Acute (3) PNA (pneumonia) Code(s): J18.9 - Pneumonia, unspecified organism Status: Acute (4) Suicidal ideations Code(s): R45.851 - Suicidal ideations Status: Acute (5) Major depressive disorder Code(s): F32.9 - Major depressive disorder, single episode, unspecified Status : Acute - Plan 77-year-old male with a past medical history significant for hypertension, hyperlipidemia, peptic ulcer disease and coronary artery disease status post stent placement presents to the emergency department for the evaluation of an intentional overdose by taking at least 20 hydrocodone based medications. He does not have a history of depression and has not attempted suicide in the past. On admission patient was found to have aspiration pneumonia and was treated with IV antibiotic. Patient was transferred for medical psych for medical and Psychiatry management. Intentional overdose/suicidal ideation/depression -Presented under Butt act -S/P Poison control contacted regarding acetaminophen and hydrocodone overdose -Repeat acetaminophen level trended down -Psychiatric team for management Possible aspiration pneumonia/leukocytosis/elevated lactic acid -CT of the abdomen/pelvis significant for mild bronchopneumonia versus aspiration -Treated with IV vancomycin/Zosyn/Flagyl in the medical floor abx initiated -Complete p.o. antibiotic Augmentin, and Flagyl for 5 days -Respiratory status stable Acute kidney injury -Improving -Monitor renal function -Encourage increase fluid intake -Monitor BMP Hypertension, uncontrolled -BP continues to run high -increased Norvasc to 10mg daily -continue Clonidine as needed for SBP>160 or DBP >90 -add lisinopril 10mg daily -monitor BP Coronary artery disease w/ stenting, HLD -No chest pain, no SOB -continue Aspirin, recently restarted on statin, mildly elevated LFT's -Monitor Peptic ulcer disease -Continue pantoprazole DVT prophylaxis: Patient ambulatory Patient medically stable and could be transferred to regular psychiatric unit if psychiatrist believes this is appropriate. (2) Drug overdose Qualifiers: Encounter type: initial encounter Injury intent: intentional self-harm Qualified Code(s): T50.902A - Poisoning by unspecified drugs, medicaments and biological substances, intentional self-harm, initial encounter (3) PNA (pneumonia) Qualifiers: Pneumonia type: due to unspecified organism Laterality: unspecified laterality Lung location: unspecified part of lung Qualified Code(s): J18.9 - Pneumonia, unspecified organism (5) Major depressive disorder Qualifiers: Major depression recurrence: single episode Major depression episode severity : severe Psychotic features: without psychotic features
--- NOTE | 2018-04-26 16:26 | P.PNPSY ---
Subjective Chief Complaint: "I got overwhelmed" Remarks: Patient seen for follow-up, chart reviewed. Discussion with nursing staff reported that patient calm and cooperative, compliant medications, with good affect. Patient was found ambulating on the unit noted B, cooperative. Patient states that he is feeling "tired" but reports having slept better last evening. Patient states his mood is "pretty good" stating having spoken with them yesterday. He reports that he is tolerating medications well and and ambulatory on the unit. He denies any suicidal homicidal ideation at this time. Review of Systems All other systems reviewed negative except as stated in HPI Mental Status Examination Appearance: Appropriate Consciousness: Alert Orientation: x4 Motor Activity: Normal gait Speech: Unremarkable Language: Adequate Fund of Knowledge: Adequate Attention and Concentration: Adequate Memory: Unremarkable Mood: Anxious (Lessening) Affect: Other (congruent) Thought Process & Associations: Intact Thought Content: Appropriate Hallucination Type: None Delusion Type: None Suicidal Ideation: No (denies today) Suicidal Plan: No Suicidal Intention: No Homicidal Ideation: No Homicidal Plan: No Homicidal Intention: No Insight: Fair Judgment: Impulsive Assessment and Plan - Assessment (1) Major depress dis, severe Code(s): F32.2 - Major depressive disorder, single episode, severe without psychotic features Status: Acute (2) Generalized anxiety disorder Code(s): F41.1 - Generalized anxiety disorder Status: Acute - Plan Plan: Patient this time noted with good affect, responding well to medications denying any suicidal or homicidal ideations reporting improvement in depressed mood. 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 He reports having spoken recently. We will continue current treatment. We will continue to monitor mood and behavior. Patient like for discharge soon if patient continued with consistent improvement in mood. Discharge planning in progress. Justification for Continued Inpatient Stay: At risk of further decompensation at lower level care.
[2018-04-26] MEDS: Lisinopril 10 MG Tablet PO SCH (18:08)
[2018-04-26] MEDS: Sertraline 50 MG Tablet PO SCH (20:35)
[2018-04-27 08:09] LABS: Baso # (Auto) 0.1 th/mm3 (0.0-0.2); Baso % (Auto) 0.9 % (0.0-2.0); Eos # (Auto) 0.2 th/mm3 (0.0-0.4); Eos % (Auto) 2.9 % (0.0-4.0); Hematocrit 38.1 % (39.0-51.0); Hemoglobin 13.6 gm/dL (13.0-17.0); Lymph % (Auto) 15.8 % (9.0-44.0); Mean Corpuscular HGB Conc 35.6 % (32.0-36.0); Mean Corpuscular Volume 98.5 fL (80.0-100.0); Mean Platelet Volume 7.5 fL (7.0-11.0); Mono # (Auto) 0.8 th/mm3 (0.0-0.9); Mono % (Auto) 12.7 % (0.0-8.0); Neut # (Auto) 4.2 th/mm3 (1.8-7.7); Neut % (Auto) 67.7 % (16.0-70.0); Platelet Count 226 th/mm3 (150-450); Red Blood Count 3.87 mil/mm3 (4.50-5.90); White Blood Count 6.3 th/mm3 (4.0-11.0)
[2018-04-27 08:37] LABS: Calcium 8.6 mg/dL (8.5-10.1); Carbon Dioxide 27.2 meq/L (21.0-32.0); Potassium 4.1 meq/L (3.5-5.1)
[2018-04-27] MEDS: Amoxicillin/Clavulanate 875/125 MG Tablet PO SCH ×2 (09:39→20:36)
[2018-04-27] MEDS: Senna/Docusate Sodium 8.6/50 MG Tablet PO SCH ×2 (09:39→20:36)
[2018-04-27] MEDS: metroNIDAZOLE 500 MG Tablet PO SCH ×2 (09:39→20:36)
[2018-04-27] MEDS: Lisinopril 10 MG Tablet PO SCH ×2 (09:39→20:37)
[2018-04-27] MEDS: amLODIPine 5 MG Tablet PO SCH (09:40)
[2018-04-27] MEDS: Pantoprazole Sodium 20 MG DR Tablet PO SCH (09:40)
--- NOTE | 2018-04-27 15:09 | P.TTN ---
- Patient Problems Problems: 1. Discharge planning 2. Medication compliance 3. Knowledge deficit 4. Lack of coping skills - Progress Toward Goals Provider Present: Dr. Kale Chase Provider Input: 04/27/2018; per doctor no med change or adjustment, would like counselor to contact to discuss dc home concerns Nurse(s) Present: RN Nurse Input: 04/27/2018; per RN no behavior concerns, patient is unit appropriate Psychiatric Counselors Present: Kristina Cruz [facility] Psychiatric Therapist Input: 04/27/2018: counselor will reach out to Svetlana Díaz, patient's to discuss dc concerns. Per patient he will be returning home when dc with outpatient service Group Spec/RT/OT/COLON Present: ISAIAH Snyder Spec/RT/OT/COLON Input: 04/27/2018: Patient has not participate with groups or activities - Documentation Teaching Recipient: Patient
--- NOTE | 2018-04-27 16:36 | P.PN ---
Subjective Interval history: Follow up for overdose, pneumonia, with BARBARA. The patient complains of a mild sore throat today with some odynophagia, denies dysphagia, still tolerating oral intake. He reports a dry hacking nonproductive cough at times. Denies fevers/chills. Denies any chest pain. Denies any other medical complaints at this time. Physical Exam Vital signs: Vital Signs 04/26/18 17:58 04/27/18 05:15 Temperature 98.5 F 97.7 F Pulse Rate 70 77 Respiratory Rate 18 17 Blood Pressure 149/69 H 158/72 H Pulse Oximetry 96 95 Intake & Output 04/26/18 04/27/18 04/27/18 18:59 06:59 18:59 Intake Total 1200 / 1200 240 / 240 720 / 720 Balance 1200 / 1200 240 / 240 720 / 720 Intake: Oral 1200 / 1200 240 / 240 720 / 720 Other: # Voids 4 1 Narrative: GENERAL: well developed, well nourished male in no apparent distress SKIN: Warm and dry. HEENT: Atraumatic. Normocephalic. Pupils equal and round. Mucous membranes pink and moist. Posterior Oropharynx erythematous, no exudates/edema; surgically absent tonsils. NECK: Trachea midline. CARDIOVASCULAR: Regular rate and rhythm. No murmur appreciated. RESPIRATORY: No accessory muscle use. Clear to auscultation. Breath sounds equal bilaterally. GASTROINTESTINAL: Abdomen obese soft, non-tender, nondistended. +BS MUSCULOSKELETAL: No obvious deformities. Trace bilateral lower extremity edema. NEUROLOGICAL: Awake and alert. No obvious cranial nerve deficits. Motor grossly within normal limits. Normal speech. PSYCHIATRIC: Appropriate mood and affect. Results - Labs CBC & Chem 7: 04/27/18 07:33 04/27/18 07:35 Laboratory Results - last 24 hr 04/27/18 04/27/18 07:33 07:35 WBC 6.3 RBC 3.87 L Hgb 13.6 Hct 38.1 L MCV 98.5 MCH 35.0 H MCHC 35.6 RDW 14.0 Plt Count 226 MPV 7.5 Neut % (Auto) 67.7 Lymph % (Auto) 15.8 Bracken % (Auto) 12.7 H Eos % (Auto) 2.9 Baso % (Auto) 0.9 Neut # (Auto) 4.2 Lymph # (Auto) 1.0 Bracken # (Auto) 0.8 Eos # (Auto) 0.2 Baso # (Auto) 0.1 WBC Differential . Differential Comment Auto diff final Sodium 140 Potassium 4.1 Chloride 107 Carbon Dioxide 27.2 Anion Gap 6 BUN 20 H Creatinine 1.29 Estimated GFR 54 L Random Glucose 93 Calcium 8.6 Assessment and Plan - Assessment (1) Depression Code(s): F32.9 - Major depressive disorder, single episode, unspecified Status : Acute (2) Drug overdose Code(s): T50.901A - Poisoning by unspecified drugs, medicaments and biological substances, accidental (unintentional), initial encounter Status: Acute (3) PNA (pneumonia) Code(s): J18.9 - Pneumonia, unspecified organism Status: Acute (4) Suicidal ideations Code(s): R45.851 - Suicidal ideations Status: Acute (5) Major depressive disorder Code(s): F32.9 - Major depressive disorder, single episode, unspecified Status : Acute - Plan 77-year-old male with a past medical history significant for hypertension, hyperlipidemia, peptic ulcer disease and coronary artery disease status post stent placement presents to the emergency department for the evaluation of an intentional overdose by taking at least 20 hydrocodone based medications. He does not have a history of depression and has not attempted suicide in the past. On admission patient was found to have aspiration pneumonia and was treated with IV antibiotic. Patient was transferred for medical psych for medical and Psychiatry management. Intentional overdose/suicidal ideation/depression -Presented under Butt act -S/P Poison control contacted regarding acetaminophen and hydrocodone overdose -Repeat acetaminophen level trended down -Psychiatric team for management Possible aspiration pneumonia/leukocytosis/elevated lactic acid -CT of the abdomen/pelvis significant for mild bronchopneumonia versus aspiration -Treated with IV vancomycin/Zosyn/Flagyl in the medical floor abx initiated -Complete p.o. antibiotic Augmentin, and Flagyl for 5 days (complete on 04/28) -Respiratory status stable Cough/Odynophagia: suspect secondary to cough and post nasal drip -give cepacol lozenges prn, robitussin prn, and viscous lidocaine prn Acute kidney injury -Improving -Monitor renal function -Encourage increase fluid intake -Monitor BMP -renal function stabilized, suspect patient has underlying CKD stage III Hypertension, uncontrolled -BP continues to run high, 175/91 -increased Norvasc to 10mg daily -continue Clonidine as needed for SBP>160 or DBP >90 -add lisinopril, increased to 10mg bid on 04/27 -monitor BP, adjust antihypertensives as needed -much improved Coronary artery disease w/ stenting, HLD -No chest pain, no SOB -continue Aspirin, recently restarted on statin, mildly elevated LFT's -Monitor Peptic ulcer disease -Continue pantoprazole DVT prophylaxis: Patient ambulatory Patient medically stable and could be transferred to regular psychiatric unit if psychiatrist believes this is appropriate. (2) Drug overdose Qualifiers: Encounter type: initial encounter Injury intent: intentional self-harm Qualified Code(s): T50.902A - Poisoning by unspecified drugs, medicaments and biological substances, intentional self-harm, initial encounter (3) PNA (pneumonia) Qualifiers: Pneumonia type: due to unspecified organism Laterality: unspecified laterality Lung location: unspecified part of lung Qualified Code(s): J18.9 - Pneumonia, unspecified organism (5) Major depressive disorder Qualifiers: Major depression recurrence: single episode Major depression episode severity : severe Psychotic features: without psychotic features
[2018-04-27] MEDS ORDERED: Benzocaine/Menthol 15 MG/3.6 MG SF Lozenge BUCCAL PRN (17:00)
[2018-04-27] MEDS ORDERED: guaiFENesin/Dextromethorphan 200 MG/20 MG 10 ML UDC PO PRN (17:02)
[2018-04-27] MEDS: Sertraline 50 MG Tablet PO SCH (20:37)
--- NOTE | 2018-04-27 21:56 | P.PNPSY ---
Subjective Chief Complaint: "I got overwhelmed" Remarks: Patient seen for follow-up, chart reviewed. Discussion with nursing staff reported that patient cooperative and pleasant. Patient was found sitting hospital bed stating he is feeling "not so good" he is worried about documents that need to be sign it witnessed to avoid criminal charges from his civil lawsuit that is currently pending. He states that other than this where he has been feeling well denying any suicide ideations and resting and tolerating treatment. Review of Systems All other systems reviewed negative except as stated in HPI Mental Status Examination Appearance: Appropriate Consciousness: Alert Orientation: x4 Motor Activity: Normal gait Speech: Unremarkable Language: Adequate Fund of Knowledge: Adequate Attention and Concentration: Adequate Memory: Unremarkable Mood: Anxious (Lessening) Affect: Other (congruent) Thought Process & Associations: Intact Thought Content: Appropriate Hallucination Type: None Delusion Type: None Suicidal Ideation: No Suicidal Plan: No Suicidal Intention: No Homicidal Ideation: No Homicidal Plan: No Homicidal Intention: No Insight: Fair Judgment: Impulsive Assessment and Plan - Assessment (1) Major depress dis, severe Code(s): F32.2 - Major depressive disorder, single episode, severe without psychotic features Status: Acute (2) Generalized anxiety disorder Code(s): F41.1 - Generalized anxiety disorder Status: Acute - Plan Plan: Patient continued with improvement in mood denying suicide ideations but noted to be anxious and worried about pending lawsuit and documents that need to be finalized prior to tomorrow. Patient's is visiting later today to address these legal documents. Continue current treatment. Continue to monitor mood and behavior. Discharge planning in progress. Justification for Continued Inpatient Stay: At risk of further decompensation at lower level care.
[2018-04-28 06:02] VITALS: BP 116/68; PULSE 66; RESP 16; TEMP 99.2; O2SAT 97
[2018-04-28] MEDS: Lisinopril 10 MG Tablet PO SCH (09:59)
[2018-04-28] MEDS: amLODIPine 5 MG Tablet PO SCH (09:59)
[2018-04-28] MEDS: Senna/Docusate Sodium 8.6/50 MG Tablet PO SCH (09:59)
[2018-04-28] MEDS: Pantoprazole Sodium 20 MG DR Tablet PO SCH (09:59)
[2018-04-28] MEDS: Amoxicillin/Clavulanate 875/125 MG Tablet PO SCH (09:59)
[2018-04-28] MEDS: metroNIDAZOLE 500 MG Tablet PO SCH (09:59)
--- NOTE | 2018-04-28 13:07 | P.PN ---
Subjective Interval history: Follow up for overdose, pneumonia, hypertension. The patient is seen ambulating his room. He states he feels much better. He is looking forward to going home today. Still with occasional nonproductive cough. Sore throat much improved. No fevers/chills. BP improved. He has no other medical complaints at this time. Physical Exam Vital signs: Vital Signs 04/27/18 18:00 04/28/18 06:00 Temperature 98.4 F 99.2 F Pulse Rate 73 66 Respiratory Rate 17 16 Blood Pressure 129/66 116/68 Pulse Oximetry 94 L 97 Intake & Output 04/27/18 04/28/18 04/28/18 18:59 06:59 18:59 Intake Total 192 / 1920 960 / 960 480 / 480 Balance 192 / 1920 960 / 960 480 / 480 Weight 83.1 kg Intake: Oral 1919 / 1919 960 / 960 480 / 480 Other: # Voids 3 2 Date of Last Bowel Movement 04/23/18 Narrative: GENERAL: well developed, well nourished male in no apparent distress SKIN: Warm and dry. HEENT: Atraumatic. Normocephalic. Pupils equal and round. Mucous membranes pink and moist. Posterior Oropharynx with improved erythema, no exudates/edema; surgically absent tonsils. CARDIOVASCULAR: Regular rate and rhythm. No murmur appreciated. RESPIRATORY: No accessory muscle use. Clear to auscultation. Breath sounds equal bilaterally. GASTROINTESTINAL: Abdomen obese soft, non-tender, nondistended. +BS MUSCULOSKELETAL: No obvious deformities. No lower extremity edema. NEUROLOGICAL: Awake and alert. No obvious cranial nerve deficits. Motor grossly within normal limits. Normal speech. PSYCHIATRIC: Appropriate mood and affect. Results - Labs CBC & Chem 7: 04/27/18 07:33 04/27/18 07:35 Assessment and Plan - Assessment (1) Depression Code(s): F32.9 - Major depressive disorder, single episode, unspecified Status : Acute (2) Drug overdose Code(s): T50.901A - Poisoning by unspecified drugs, medicaments and biological substances, accidental (unintentional), initial encounter Status: Acute (3) PNA (pneumonia) Code(s): J18.9 - Pneumonia, unspecified organism Status: Acute (4) Suicidal ideations Code(s): R45.851 - Suicidal ideations Status: Acute (5) Major depressive disorder Code(s): F32.9 - Major depressive disorder, single episode, unspecified Status : Acute - Plan 77-year-old male with a past medical history significant for hypertension, hyperlipidemia, peptic ulcer disease and coronary artery disease status post stent placement presents to the emergency department for the evaluation of an intentional overdose by taking at least 20 hydrocodone based medications. He does not have a history of depression and has not attempted suicide in the past. On admission patient was found to have aspiration pneumonia and was treated with IV antibiotic. Patient was transferred for medical psych for medical and Psychiatry management. Intentional overdose/suicidal ideation/depression -Presented under Butt act -S/P Poison control contacted regarding acetaminophen and hydrocodone overdose -Repeat acetaminophen level trended down -Psychiatric team for management, patient going home today Possible aspiration pneumonia/leukocytosis/elevated lactic acid -CT of the abdomen/pelvis significant for mild bronchopneumonia versus aspiration -Treated with IV vancomycin/Zosyn/Flagyl in the medical floor abx initiated -Complete p.o. antibiotic Augmentin, and Flagyl for 5 days (completed on 04/28) -Respiratory status stable Cough/Odynophagia: suspect secondary to cough and post nasal drip -given cepacol lozenges prn, robitussin prn, and viscous lidocaine prn -improved Acute kidney injury -Improving -Monitor renal function -Encourage increase fluid intake -Monitor BMP -renal function stabilized, suspect patient has underlying CKD stage III Hypertension, uncontrolled -BP continues to run high, 175/91 -increased Norvasc to 10mg daily -continue Clonidine as needed for SBP>160 or DBP >90 -add lisinopril, increased to 10mg bid on 04/27 -monitor BP, adjust antihypertensives as needed -much improved Coronary artery disease w/ stenting, HLD -No chest pain, no SOB -continue Aspirin, recently restarted on statin, mildly elevated LFT's -Monitor Peptic ulcer disease -Continue pantoprazole DVT prophylaxis: Patient ambulatory Patient medically stable for discharge. Discharge Planning: Stable for discharge. Sent prescriptions to pharmacy: norvasc 10mg daily, lisinopril 10mg bid, pravastatin 20mg hs (2) Drug overdose Qualifiers: Encounter type: initial encounter Injury intent: intentional self-harm Qualified Code(s): T50.902A - Poisoning by unspecified drugs, medicaments and biological substances, intentional self-harm, initial encounter (3) PNA (pneumonia) Qualifiers: Pneumonia type: due to unspecified organism Laterality: unspecified laterality Lung location: unspecified part of lung Qualified Code(s): J18.9 - Pneumonia, unspecified organism (5) Major depressive disorder Qualifiers: Major depression recurrence: single episode Major depression episode severity : severe Psychotic features: without psychotic features
--- NOTE | 2018-04-28 20:04 | P.DSPSY ---
Psychiatry Discharge Summary Inpatient Psychiatric care?: Yes Advance Directives: Yes Mental Health Advance Directive: No Health Care Proxy: Unknown - Admission Admission Date: April 23, 2018 10:18 - Admission Diagnosis (1) Generalized anxiety disorder Code(s): F41.1 - Generalized anxiety disorder (2) Major depress dis, severe Code(s): F32.2 - Major depressive disorder, single episode, severe without psychotic features Brief History: Pt is a 77 YOWM admitted to med/psych unit due to suicide attempt via intentional overdose and depression. Stressors include current marital separation and pending divorce, and financial problems resulting from a lawsuit. He reports increasing anxiety, poor sleep, anhedonia, low energy and depressed mood and suicidal ideations X one month. He reports that he has also been drinking more often at night in order to try and get to sleep. He states that he had a meeting with his divorce attorney and he became overwhelmed by anxiety and decided that suicide was the best option to "just end it all". He states that he took approximately 20 tablets of hydrocodone (left over from an old prescription) intentionally to end his life. He states that after the ingestion , he thought about things that he still had to look forward to and decided to call EMS for help. He denies previous hx of psychiatric treatment. He denies previous episode of depression but reports that he has had a lot of difficulty with anxiety over the years. No hx of psychosis or rogerio/hypomania. Tobacco Use In Past 30 Days: No How Often Do You Have a Drink Containing Alcohol: 4 or more times a week Hospital Course: Pt is a 77 YOWM admitted to med/psych unit due to suicide attempt via intentional overdose and depression. Stressors include current marital separation and pending divorce, and financial problems resulting from a lawsuit , which patient made a suicide attempt via overdose which patient was admitted to the inpatient psychiatry unit after medical clearance for further evaluation and management. Patient was admitted to a locked, inpatient psychiatric unit. Appropriate precautions were in place throughout patient's hospital stay. Patient was seen and examined on the unit by psychiatry. Psychotropic medications were adjusted and patient was followed by medical team for chronic and acute medical conditions. There was no evidence of any further suicidality or homicidality on the inpatient unit. Patient's mood improved with the benefit of psychopharmacological treatment and had no behavioral disturbance since admission. Patient was noted to have reached stable mood, noted to participate and engage in treatment and interact with staff adequately. Patient noted to be future oriented with plans to continue treatment and outpatient follow-up appointments for continuity of care. Counselor has arranged discharge plan which patient will be discharged to his residence with his . On the day of discharge: Patient seen and examined; chart reviewed. Case discussed with nurse and counselor. No behavioral issues overnight. On my examination today, the patient denies any suicidal homicidal ideation, intent or plan on direct questioning and contracts for safety. Patient denies any perceptional disturbances and no delusional material verbalized today. Patient denies any side effects from medication and has understanding of medication regimen and education. No physical complaints. Suicide and violence risk assessment on day of discharge both suggest lower imminent risk, and the patient's level of function is adequate for plan level of outpatient care. Patient has maximized benefit from this inpatient psychiatric hospital stay and will be discharged with discharge plan as arranged by counselor. Patient advised to return to psychiatric emergency room for any concerning psychiatric symptoms. Patient agrees with plan. - Discharge Discharge Date: 04/28/18 - Discharge Diagnosis (1) Generalized anxiety disorder Code(s): F41.1 - Generalized anxiety disorder Status: Acute (2) Major depress dis, severe Code(s): F32.2 - Major depressive disorder, single episode, severe without psychotic features Status: Acute Discharge Disposition: Home - Discharge Instructions Discharge Diet: Heart Healthy Diet Activities You Can Perform: Regular- No Restrictions - Discharge Time > 30 minutes Mental Status Examination Appearance: Appropriate Consciousness: Alert Orientation: x4 Motor Activity: Normal gait Speech: Unremarkable Language: Adequate Fund of Knowledge: Adequate Attention and Concentration: Adequate Memory: Unremarkable Mood: Appropriate Affect: Appropriate Thought Process & Associations: Intact Thought Content: Appropriate Hallucination Type: None Delusion Type: None Suicidal Ideation: No Suicidal Plan: No Suicidal Intention: No Homicidal Ideation: No Homicidal Plan: No Homicidal Intention: No Insight: Fair Judgment: Impulsive Discharge/Advance Care Plan - Results Vital Signs: Last Vital Signs Temp 99.2 F 04/28/18 06:00 Pulse 66 04/28/18 06:00 Resp 16 04/28/18 06:00 BP 116/68 04/28/18 06:00 Pulse Ox 97 04/28/18 06:00 Lab Results: Laboratory Results Hemoglobin A1c 5.3 % (4.3-6.0) 04/24/18 11:18 Triglycerides 166 mg/dL (42-150) H 04/24/18 11:18 Cholesterol 225 mg/dL (120-200) H 04/24/18 11:18 LDL Cholesterol, Calc 114 mg/dL (0-99) H 04/24/18 11:18 HDL Cholesterol 78.3 mg/dL (40.0-60.0) H 04/24/18 11:18 Summary of Procedures: none Pending Results: None - Medications Number of antipsychotic medications at discharge: 0 - Discharge Care Plan Goals to Promote Your Health: * To prevent worsening of your condition and complications * To maintain your health at the optimal level Directions to Meet Your Goals: Take your medications as prescribed Follow your dietary instruction Follow activity as directed Keep your appointments as scheduled Take your immunizations and boosters as scheduled If your symptoms worsen call your PCP, if no PCP go to Urgent Care Center or Emergency Room For 25/01 questions related to your inpatient stay or results of tests pending at discharge, please contact Dr. Kostas Chase MD at Smoking is Dangerous to Your Health. Avoid second hand smoking
== END 2018-04-28 14:00 | disposition home or self-care (01) ==
LOC: H4EA 10:18
PROVIDERS: ADMIT Student in an Organized Health Care Education/Training Program; ATTEND Student in an Organized Health Care Education/Training Program